=== PATIENT | female | born 1960 | race Caucasian/White ===

== ENCOUNTER 2020-09-20 14:13 | Emergency (ER) | payer OTHER ==
--- NOTE | 2020-09-20 16:23 | EDPHYS ---
Physician Documentation [facility] Name: Genesis Camejo Age: 60 yrs Sex: Female : 1960 Arrival Date: 09/20/2020 Time: 14:14 Bed 16 Private MD: Davy Bazan HPI: 09/20 16:10 This 60 yrs old Female presents to ER via Ambulatory with complaints of sent veda by [facility]. 16:10 The patient has shortness of breath with light activity. Onset: The symptoms/episode veda began/occurred 3 day(s) ago. Duration: The symptoms are continuous, and are steadily getting worse. The patient's shortness of breath has no apparent modifying factors. The patient complains of pain to the top of head, forehead, left frontal area, left side of the back of head, left occipital area and left base of the skull. The patient describes the headache as constant. Onset: The symptoms/episode began/occurred 2 week(s) ago. Associated signs and symptoms: Pertinent positives: dizziness, malaise, nausea, weakness. Severity of symptoms: At its worst the pain was mild, in the emergency department the pain is unchanged. Headache History: The patient has had previous headaches and this one is different than previous episodes, and this one is more severe than previous episodes. Associated signs and symptoms: Pertinent positives: non-productive cough, nausea. Historical: - Allergies: 14:55 PENICILLINS; tw2 14:55 Codeine; tw2 - Home Meds: 14:55 None [Active]; tw2 - PMHx: 14:55 Lung Cancer; Brain Cancer; tw2 - PSHx: 14:55 ; tw2 - Immunization history:: Adult Immunizations. - Social history:: Smoking status: Patient reports the use of cigarette tobacco products, smokes one pack cigarettes per day. 40+ years. - Family history:: not pertinent. ROS: 16:10 Constitutional: Negative for fever, chills, and weight loss, Eyes: Negative for injury, veda pain, redness, and discharge, ENT: Negative for injury, pain, and discharge, Neck: Negative for injury, pain, and swelling, Cardiovascular: Negative for chest pain, palpitations, and edema, Respiratory: Negative for shortness of breath, cough, wheezing, and pleuritic chest pain, Abdomen/GI: Negative for abdominal pain, nausea, vomiting, diarrhea, and constipation, Back: Negative for injury and pain, : Negative for injury, bleeding, discharge, and swelling, MS/Extremity: Negative for injury and deformity, Skin: Negative for injury, rash, and discoloration, Psych: Negative for depression, anxiety, suicide ideation, homicidal ideation, and hallucinations, Allergy/Immunology: Negative for hives, rash, and allergies, Endocrine: Negative for neck swelling, polydipsia, polyuria, polyphagia, and marked weight changes, Hematologic/Lymphatic: Negative for swollen nodes, abnormal bleeding, and unusual bruising. 16:10 Neuro: Positive for dizziness, headache. Exam: 16:10 Constitutional: This is a well developed, well nourished patient who is awake, alert, veda and in no acute distress. Head/Face: Normocephalic, atraumatic. Eyes: Pupils equal round and reactive to light, extra-ocular motions intact. Lids and lashes normal. Conjunctiva and sclera are non-icteric and not injected. Cornea within normal limits. Periorbital areas with no swelling, redness, or edema. ENT: Nares patent. No nasal discharge, no septal abnormalities noted. Tympanic membranes are normal and external auditory canals are clear. Oropharynx with no redness, swelling, or masses, exudates, or evidence of obstruction, uvula midline. Mucous membranes moist. Neck: Trachea midline, no thyromegaly or masses palpated, and no cervical lymphadenopathy. Supple, full range of motion without nuchal rigidity, or vertebral point tenderness. No Meningismus. Chest/axilla: Normal chest wall appearance and motion. Nontender with no deformity. No lesions are appreciated. Cardiovascular: Regular rate and rhythm with a normal S1 and S2. No gallops, murmurs, or rubs. Normal PMI, no JVD. No pulse deficits. Abdomen/GI: Soft, non-tender, with normal bowel sounds. No distension or tympany. No guarding or rebound. No evidence of tenderness throughout. Back: No spinal tenderness. No costovertebral tenderness. Full range of motion. Female : Normal external genitalia. Skin: Warm, dry with normal turgor. Normal color with no rashes, no lesions, and no evidence of cellulitis. MS/ Extremity: Pulses equal, no cyanosis. Neurovascular intact. Full, normal range of motion. Neuro: Awake and alert, GCS 15, oriented to person, place, time, and situation. Cranial nerves II-XII grossly intact. Motor strength 5/5 in all extremities. Sensory grossly intact. Cerebellar exam normal. Normal gait. Psych: Awake, alert, with orientation to person, place and time. Behavior, mood, and affect are within normal limits. 16:10 Respiratory: the patient does not display signs of respiratory distress, Respirations: normal, Breath sounds: bronchial sounds, decreased breath sounds, that are mild, are heard in the right upper lobe, left upper lobe, right middle lobe, left lower lobe, right lower lobe, left posterior upper lobe, right posterior upper lobe, left posterior lower lobe, right posterior middle lobe and right posterior lower lobe, rhonchi, that are mild, stridor, is not appreciated, wheezing: expiratory Vital Signs: 14:51 BP 172 / 66; Pulse 110; Resp 17; Temp 98.3(TE); Pulse Ox 96% on R/A; Weight 56.25 kg tw2 (R); Height 5 ft. 4 in. (162.56 cm); Pain 0/10; 20:00 BP 135 / 67; Pulse 81; Resp 16; Pulse Ox 97% on R/A; jm8 22:33 BP 113 / 74; Pulse 78; Resp 16; Pulse Ox 96% on R/A; jm8 14:51 Body Mass Index 21.28 (56.25 kg, 162.56 cm) tw2 Mary Coma Score: 16:15 Eye Response: spontaneous(4). Verbal Response: oriented(5). Motor Response: obeys veda commands(6). Total: 15. MDM: 16:15 Antibiotic administration: Not indicated. Differential diagnosis: Bronchitis Chronic veda Obstructive Pulmonary Disease epidural hematoma, hypoglycemia, neoplasm, subarachnoid bleed, tension headache. The patient's Wells Deep Vein Thrombosis Score was calculated as follows: Heart Rate >100 BPM (1.5 Pts) Total Score: 0-2 Pts- Low Risk. The patient's pulmonary embolism risk score was calculated as follows: the patients heart rate is greater than 100 beats per minute (1.5 Pts) Total Score: 0-2 points. This patient was found to be at low risk for a pulmonary embolism by using the Well's assessment criteria. Immunization status: Influenza vaccine:. Data reviewed: vital signs, nurses notes, lab test result(s), EKG, radiologic studies, CT scan, plain films. 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 Test interpretation: by ED physician or midlevel provider: ECG, plain radiologic studies. Counseling: I had a detailed discussion with the patient and/or guardian regarding: the historical points, exam findings, and any diagnostic results supporting the discharge/admit diagnosis, lab results, radiology results, the need to transfer to another facility, for higher level of care, [facility] does not immediately have the required specialist. 16:21 Patient medically screened. [facility] 09/20 16:07 Order name: Basic Metabolic Panel [facility] 09/20 16:07 Order name: CBC with Diff [facility] 09/20 16:07 Order name: LFT's; Complete Time: 19:31 [facility] 09/20 16:07 Order name: Magnesium; Complete Time: 19:31 [facility] 09/20 16:07 Order name: NT PRO-BNP; Complete Time: 19:31 [facility] 09/20 16:07 Order name: PT-INR [facility] 09/20 16:07 Order name: Troponin (emerg Dept Use Only); Complete Time: 19:31 [facility] 09/20 16:07 Order name: XRAY Chest (1 view); Complete Time: 18:37 [facility] 09/20 16:07 Order name: Basic Metabolic Panel; Complete Time: 19:31 [facility] 09/20 16:07 Order name: CBC with Automated Diff [facility] 09/20 19:21 Order name: SARS-COV-2 RT PCR; Complete Time: 19:31 [facility] 09/20 16:07 Order name: EKG; Complete Time: 16:08 veda 09/20 16:07 Order name: Cardiac monitoring; Complete Time: 20:25 veda 09/20 16:07 Order name: EKG - Nurse/Tech; Complete Time: 20:25 veda 09/20 16:07 Order name: IV Saline Lock; Complete Time: 19:25 veda 09/20 16:07 Order name: Labs collected and sent; Complete Time: 18:34 veda 09/20 16:07 Order name: O2 Per Protocol; Complete Time: 18:34 [facility] 09/20 16:07 Order name: O2 Sat Monitoring; Complete Time: 18:34 veda 09/20 16:07 Order name: Seizure Precautions; Complete Time: 18:33 [facility] Administered Medications: Discontinued: Keppra (levETIRAcetam) 1000 mg IV at per protocol once Discontinued: NS 0.9% 1000 ml IV at 125 ml/hr continuous 18:58 Drug: Keppra (levETIRAcetam) 1000 mg Route: IV; Rate: per protocol; Site: left forearm; em 22:47 Follow up: Response: No adverse reaction 8 19:00 Drug: Decadron - Dexamethasone 10 mg Route: IVP; Site: left forearm; em 22:46 Follow up: Response: No adverse reaction jm8 19:02 Drug: NS 0.9% 1000 ml Route: IV; Rate: 125 ml/hr; Site: left forearm; em Disposition: 09/20/20 16:21 Transfer ordered to [facility]. Diagnosis are Malignant neoplasm of bronchus and lung, Cerebral edema - two metastatic lesions with significant vasogenic edema. - Reason for transfer: Higher level of care. - Accepting physician is to [facility]. - Condition is Serious. - Problem is new. - Symptoms have improved. Signatures: Dispatcher [employer] [facility] Davy Gardner MD MD cha Munoz, Edgar, RN RN Tosin Benavidez RN RN tw2 Kumar Prasad RN RN jm8 Corrections: (The following items were deleted from the chart) 18:42 16:09 CORONAVIRUS+MR.LAB.BRZ ordered. [facility] 22:45 16:21 09/20/2020 16:21 Transfer ordered to [facility]. Diagnosis is jm8 Malignant neoplasm of bronchus and lung; Cerebral edema - two metastatic lesions with significant vasogenic edema. Reason for transfer: Higher level of care. Accepting physician is to [facility]. Condition is Serious. Problem is new. Symptoms have improved. veda
--- NOTE | 2020-09-20 16:23 | ER ---
Nurse's Notes [facility] Name: Genesis Camejo Age: 60 yrs Sex: Female : 1960 Arrival Date: 09/20/2020 Time: 14:14 Bed 16 Private MD: Diagnosis: Malignant neoplasm of bronchus and lung;Cerebral edema-two metastatic lesions with significant vasogenic edema Presentation: 09/20 14:51 Chief complaint: Patient states: I was just diagnosed with lung CANCER today and brain tw2 Cancer. i have been short of breath for about a month. i get these horrific headaches that are brutal. I get this intense pressure behind my eyes. and i am just exhausted. Coronavirus screen: headache, shortness of breath, sore throat. Coronavirus screen: Client presents with at least one sign or symptom that may indicate coronavirus-19. Standard/surgical mask placed on the client. Provider contacted for isolation considerations. Ebola Screen: Patient denies travel to an Ebola-affected area in the 21 days before illness onset. Initial Sepsis Screen: Does the patient meet any 2 criteria? No. Patient's initial sepsis screen is negative. Does the patient have a suspected source of infection? No. Patient's initial sepsis screen is negative. Risk Assessment: Do you want to hurt yourself or someone else? Patient reports no desire to harm self or others. Onset of symptoms was September 20, 2020. 14:51 Method Of Arrival: Ambulatory tw2 14:51 Acuity: NASH 2 ss Triage Assessment: 14:55 General: Appears in no apparent distress. slender, Behavior is calm, cooperative, tw2 appropriate for age. Pain: Denies pain. Historical: - Allergies: 14:55 PENICILLINS; tw2 14:55 Codeine; tw2 - Home Meds: 14:55 None [Active]; tw2 - PMHx: 14:55 Lung Cancer; Brain Cancer; tw2 - PSHx: 14:55 ; tw2 - Immunization history:: Adult Immunizations. - Social history:: Smoking status: Patient reports the use of cigarette tobacco products, smokes one pack cigarettes per day. 40+ years. - Family history:: not pertinent. Screenin:45 Abuse screen: Denies threats or abuse. Nutritional screening: No deficits noted. em Tuberculosis screening: No symptoms or risk factors identified. Fall Risk None identified. Assessment: 18:45 General: Appears in no apparent distress. comfortable, Behavior is calm, cooperative, em appropriate for age. Pain: Denies pain. Neuro: Level of Consciousness is awake, alert, obeys commands, Oriented to person, place, time, situation, Reports headache since 2 months. Cardiovascular: Capillary refill < 3 seconds Patient's skin is warm and dry. Respiratory: Airway is patent Respiratory effort is even, unlabored, Respiratory pattern is regular, symmetrical. GI: Abdomen is flat, Reports nausea. Derm: Skin is intact, is thin, Skin is pink, warm \T\ dry. Musculoskeletal: Capillary refill < 3 seconds, Range of motion: intact in all extremities. 20:00 Reassessment: Patient appears in no apparent distress at this time. Patient and/or [facility] family updated on plan of care and expected duration. Pain level reassessed. Patient is alert, oriented x 3, equal unlabored respirations, skin warm/dry/pink. 22:00 Reassessment: Patient appears in no apparent distress at this time. No changes from [facility] previously documented assessment. Patient and/or family updated on plan of care and expected duration. Pain level reassessed. Patient is alert, oriented x 3, equal unlabored respirations, skin warm/dry/pink. 09/21 00:07 Reassessment: report given to Davida Nicholson [facility] Vital Signs: 09/20 14:51 BP 172 / 66; Pulse 110; Resp 17; Temp 98.3(TE); Pulse Ox 96% on R/A; Weight 56.25 kg tw2 (R); Height 5 ft. 4 in. (162.56 cm); Pain 0/10; 20:00 BP 135 / 67; Pulse 81; Resp 16; Pulse Ox 97% on R/A; 8 22:33 BP 113 / 74; Pulse 78; Resp 16; Pulse Ox 96% on R/A; [facility] 14:51 Body Mass Index 21.28 (56.25 kg, 162.56 cm) tw2 Clanton Coma Score: 16:15 Eye Response: spontaneous(4). Verbal Response: oriented(5). Motor Response: obeys veda commands(6). Total: 15. ED Course: 14:14 Patient arrived in ED. as 14:54 Triage completed. tw2 14:55 Arm band placed on. tw2 16:04 Davy Gardner MD is Attending Physician. veda 16:27 initiated transfer to [facility]. bd 16:38 pt was denied at [facility] due to no beds. bd 16:38 initiated transfer to [facility]. bd 16:41 transfer initiated to [facility] by dr gradner,pt by Alcira Moreno due to no beds bd at this time. 16:48 XRAY Chest (1 view) In Process Unspecified. EDMS 17:48 pt denied at [facility] due to physicians not comfortable taking the pt outside [facility]. per caitie. 18:02 pt denied at all [facility] due to no capacity, per kristina. bd 18:05 initiated transfer to [facility]. bd 18:29 Jeromy Youssef, RN is Primary Nurse. em 18:45 Patient has correct armband on for positive identification. em 18:50 Initial lab(s) drawn, by fl, sent to lab. Inserted saline lock: 20 gauge in left em forearm, using aseptic technique. Blood collected. 22:43 No provider procedures requiring assistance completed. Patient transferred, IV remains [address] Administered Medications: Discontinued: Keppra (levETIRAcetam) 1000 mg IV at per protocol once Discontinued: NS 0.9% 1000 ml IV at 125 ml/hr continuous 18:58 Drug: Keppra (levETIRAcetam) 1000 mg Route: IV; Rate: per protocol; Site: left forearm; em 22:47 Follow up: Response: No adverse reaction [facility] 19:00 Drug: Decadron - Dexamethasone 10 mg Route: IVP; Site: left forearm; em 22:46 Follow up: Response: No adverse reaction [facility] 19:02 Drug: NS 0.9% 1000 ml Route: IV; Rate: 125 ml/hr; Site: left forearm; em Outcome: 16:21 ER care complete, transfer ordered by . [facility] 22:43 Transferred by ground EMS to [facility], Transfer form completed. [facility] 22:43 Condition: good 22:43 Instructed on the need for admit, the need for transfer. 22:45 [address] the ED[address] [facility] Signatures: Dispatcher [employer] [facility]NC Di Bergeron Corey, MD MD cha Munoz, Edgar, RN RN Zunilda Gee Shelby, RN RN ss Tosin Benavidez RN RN tw2 Kumar Prasad RN RN jm8 Corrections: (The following items were deleted from the chart) 15:02 14:51 Acuity: NASH 3 tw2 ss
--- NOTE | 2020-09-20 17:51 | RAD REPORT ---
EXAM DESCRIPTION: Swati Single View09/20/2020 4:49 pm CLINICAL HISTORY: Cough COMPARISON: September 16 2020 chest x-ray FINDINGS: Right upper lobe mass without change. Remaining lungs appear clear of acute infiltrate. The heart is normal size
[2020-09-20] MEDS ORDERED: dexAMETHasone 10 MG/ML VIAL ONE (18:57)
[2020-09-20] MEDS ORDERED: NA CHLORIDE 0.9% 1,000 ML ONE (18:57)
[2020-09-20] MEDS ORDERED: levETIRAcetam 1,000 MG in NA CHLORIDE 0.9% 100 ML IV SCH (19:00)
[2020-09-20 19:23] LABS: Protime INR 1.09
[2020-09-20 19:24] LABS: Absolute Lymphocytes (CBC) 2.7 K/uL (0.7-4.9); Basophils % 0.6 % (0-1.3); Hematocrit 42.3 % (36.0-45.0); Lymphocytes % 24.6 % (15.3-44.8); MPV 8.2 fL (7.6-11.3); RBC Red Blood Cell Count 4.67 M/uL (3.86-4.86)
[2020-09-20 19:30] LABS: ALT/SGPT 20 U/L (12-78); AST/SGOT 16 U/L (15-37); Albumin 3.3 g/dL (3.4-5.0); Alkaline Phosphatase 113 U/L (45-117); BUN Blood Urea Nitrogen 8 mg/dL (7-18); Bicarbonate 29 mmol/L (21-32); Bilirubin Direct < 0.1 mg/dL (0-0.2); Bilirubin Total 0.2 mg/dL (0.2-1.0); Glucose Level 108 mg/dL (74-106); Magnesium 2.2 mg/dL (1.8-2.4); NT PRO-BNP 200 pg/mL (<125); Protein, Total 8.7 g/dL (6.4-8.2); Sodium Level 138 mmol/L (136-145); Troponin (Emerg Dept Use Only) < 0.02 ng/mL (0.0-0.045)
[2020-09-20 23:11] VITALS: TEMP 98.3
[2020-09-20 23:14] VITALS: BP 113/74; O2SAT 96
--- NOTE | 2020-09-22 07:22 | EKG ---
Test Date: 2020-09-20 Test Time: 20:22:13 Plant Technical Specialist: GONZALES MEASUREMENT RESULTS: Intervals: Rate: 79 TN: 156 QRSD: 84 QT: 384 QTc: 440 [place]: P: 77 TN: 156 QRS: 89 T: 69 INTERPRETIVE STATEMENTS: Normal sinus rhythm Biatrial enlargement Abnormal ECG No previous ECG available for comparison Electronically Signed On 09-22-20 07:18:27 CDT by Micha Santos
== END 2020-09-20 22:45 | disposition short-term general hospital (02) ==
LOC: ER 14:13
DX: C79.31 Secondary malignant neoplasm of brain (principal); C34.90 Malignant neoplasm of unspecified part of unspecified bronchus or lung; G93.6 Cerebral edema; F17.210 Nicotine dependence, cigarettes, uncomplicated; Z20.822 Contact with and (suspected) exposure to COVID-19; Z88.0 Allergy status to penicillin; Z88.5 Allergy status to narcotic agent
CPT/HCPCS: 85025; 80048; 36415; 83735; 85610; 80076; 84484; 83880; 71045; U0003; J1100; J1953; J7030; 93005; 96374; 96375; 99285

== ENCOUNTER 2020-12-22 11:51 | Emergency (ER) | payer OTHER ==
--- OUTSIDE RECORDS SUMMARY | 2020-12-22 11:55 | XMS REPORT | Continuity of Care Document ---
:1960 Author Organization [facility] t Address [facility] Charlie Mcinty[address] [place] [address] Care Team Providers Name Role Phone Asked, Pcp Primary Care Physician Unavailable Johnathon METZGER Attending Clinician Jamaal Lew [facility] Attending Clinician Unavailable Piyush Linton MD Attending Clinician Quang Jamison MD Attending Clinician Becca Abrams MD Attending Clinician MD PIYUSH LINTON Attending Clinician Unavailable SHAILA Admitting Clinician Unavailable MD PIYUSH LINTON Admitting Clinician Unavailable Payers Payer Name Policy Type Policy Effective Date Expiration Date Sour Number AETNAAETNA PPO [id number] 2020 [facility] OPEN 00:00:00 Hospital [id number] 2020-Present PPO Problems Condition Condition Condition Status Onset Resolution Last Treating Co mments Source Name Details Category Date Date Treatment Clinician Date 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 00:00: Hospita 00 l Brain Brain Disease Active Methodi lesion lesion 09-21 00:00: Hospita 00 l Allergies, Adverse Reactions, Alerts Allergy Allergy Status Severity Reaction(s) Onset Inactive Treating Comm ents Source Name Type Date Date Clinician Codeine Propensi Active GI Methodi ty to Intolerance 09-21 st adverse 00:00: Hospita reaction 00 l s to drug Penicill Propensi Active Shortness Of Methodi ins ty to Breath 09-21 st adverse 00:00: Hospita reaction 00 l s to drug Social History Social Habit Start Date Stop Date Quantity Comments Source History of tobacco 1979-09-22 Current every Met hodist use 00:00:00 day smoker Hospital Cigarettes smoked 2020-09-21 2020-09-[address] current (pack per 00:00:00 00:00:00 Hospita l day) - Reported Cigarette 2020-09-21 2020-09-21 [facility] pack-years 00:00:00 00:00:00 Hospital Tobacco use and 2020-09-21 2020-09-[address] exposure 00:00:00 00:00:00 Hospital Alcohol intake 2020-09-21 2020-09-21 Current drinker Metho dist 00:00:00 00:00:00 of alcohol Hospital (finding) Sex Assigned At [birth year] [facility] 00:00:00 00:00:00 Hospital Smoking Status Start Date Stop Date Source Current every day smoker 2020-09-21 00:00:00 [facility] Medications Ordered Filled Start Stop Current Ordering Indication Dosage Frequency Signature Comments Components Source Medication Medication Date Date Medication? Clinician (SIG) Name Name multivit,ca 2020- 1{tbl} QD Take 1 M ethodi lc,mins/iro 5-12 05-[address] n/folic 00:00: 00:00 mouth Hospita (multivitam 00 :00 daily for l in,tx-iron- 30 days. minerals) 27-0.4 mg tablet tablet b complex Yes 1{capsu QD Take 1 Met hodi vitamins 5-11 le} capsule by st capsule 20:02: mouth Hospita 44 daily. l amLODIPine Yes Take 1 Metho di (NORVASC) 5 5-[address] mg tablet 00:00: mouth Hospita 00 daily for l 30 days fluticasone Yes Inhale 1 Me thodi furoate-jv 5-[address] anteroL 00:00: daily for Hospi ta (Breo 00 30 days l Ellipta) 200-25 mcg/dose blister with device powder for inhalation levETIRAcet Yes Take 1 Meth messi am (Keppra) 09-[address] 500 MG 00:00: mouth Hospita tablet 00 twice l daily for 30 days multivit,ca Yes Take 1 Meth messi lc,mins/iro - tablet by st n/folic 00:00: mouth Hospita (multivitam 00 daily for l in,tx-iron- 30 days minerals) 27-0.4 mg tablet tablet ondansetron Yes Take 8 mg M ethodi (Zofran) 4 09-27 (2 st MG tablet 00:00: tablets) Hosp philomena 00 by mouth l every 8 hours as needed for nausea/vom iting prochlorper Yes Take 1 Meth messi azine - tablet by st (COMPAZINE) 00:00: mouth Hospi ta 5 MG tablet 00 every 6 l hours as needed for nausea/vom iting dexamethaso 2020- No Taper dose Methodi ne 09-[address] (DECADRON) 00:00: 04:59 2 tablets H ospita 2 MG tablet 00 :00 (4 mg) l daily for 7 days, then take 1 tablet (2 mg) daily for 7 days amLODIPine 2020- No 5mg QD Take 1 Meth messi (NORVASC) 5 09-27 tablet (5 st mg tablet 00:00: 00:00 mg total) Ho spita 00 :00 by mouth l daily for 30 days. dexamethaso 2020- No 2mg Q.5D Take 1 Met hodi ne 09-27 tablet (2 st (DECADRON) 00:00: 00:00 mg total) H ospita 2 MG tablet 00 :00 by mouth 2 l (two) times a day with meals for 30 days. levETIRAcet 2020- No 500mg Q.5D Take 1 Me thodi am (Keppra) 09-[address] 500 MG 00:00: 00:00 (500 mg Hospita tablet 00 :00 total) by l mouth 2 (two) times a day for 30 days. fluticasone 2020- No QD Inhale 1 M ethodi furoate-jv 09-27 inhalation s t anteroL 00:00: 00:00 s daily Hospit a (Breo 00 :00 for 30 l Ellipta) days. 200-25 mcg/dose blister with device powder for inhalation Vital Signs Vital Name Observation Time Observation Value Comments Source Heart rate 2020-09-27 16:50:29 63 /min [facility] Body temperature 2020-09-27 16:50:29 36.83 [facility] Respiratory rate 2020-09-27 16:50:29 20 /min [facility] Oxygen saturation in 2020-09-27 16:50:29 97 /min [facility] Arterial blood by Pulse oximetry Systolic blood 2020-09-27 16:50:29 180 mm[Hg] [facility] pressure Diastolic blood 2020-09-27 16:50:29 72 mm[Hg] [facility] pressure Body height 2020-09-24 04:28:00 162.6 cm [facility] Body weight 2020-09-24 04:28:00 56.518 kg [facility] BMI 2020-09-24 04:28:00 21.39 kg/m2 [facility] Procedures Procedure Date / Time Performing Clinician Source Performed HC COMPLETE BLD COUNT 2020-09-27 10:36:00 Melania Dalal [facility] W/AUTO DIFF BASIC METABOLIC PANEL 2020-09-27 10:36:00 DalalAlexandrMelania [facility] ESTIMATED GFR 2020-09-27 10:36:00 Melania Dalal HC COMPLETE BLD COUNT 2020-09-26 09:10:00 [facility] W/AUTO DIFF Haresh BASIC METABOLIC PANEL 2020-09-26 09:10:00 [facility] Haresh MAGNESIUM LEVEL 2020-09-26 09:10:00 Chase Webb PHOSPHORUS LEVEL 2020-09-26 09:10:00 Chase Webb IONIZED CALCIUM 2020-09-26 09:10:00 Chase Webb ESTIMATED GFR 2020-09-26 09:10:00 Chase Webb POC GLUCOSE 2020-09-26 02:04:00 [facility] HC COMPLETE BLD COUNT 2020-09-25 10:08:00 Steveva [facility]/AUTO DIFF Axtell BASIC METABOLIC PANEL 2020-09-25 10:08[facility] 2020-09-25 10:08:00 Je Shelton [facility] HC COMPLETE BLD COUNT 2020-09-24 10:11:00 Steveva [facility]/AUTO DIFF Axtell BASIC METABOLIC PANEL 2020-09-24 10:11:[facility] ESTIM[facility] GFR 2020-09-24 10:11:[address] [facility] XR CHEST 1 2020-09-22 21:55:05 Lambert Caro [facility] XR CHEST 1 2020-09-22 20:29:00 [facility] 2020-09-22 20:10:00 [facility] REQUEST CT NEEDLE BIOPSY NO 2020-09-22 19:12:00 [facility] CONTRAST CYTOLOGY 2020-09-22 18:41:00 [facility] (NON-GYNECOLOGICAL) REQUEST HEMOGLOBIN A1C 2020-09-22 09:37:00 [facility] THYROID STIMULATING 2020-09-22 09:37:00 [facility] HORMONE T4, FREE 2020-09-22 09:37:00 [facility] VITAMIN B12 LEVEL 2020-09-22 09:37:00 [facility] FOLATE LEVEL 2020-09-22 09:37:00 [facility] VITAMIN B1 LEVEL, WHOLE 2020-09-22 09:37:00 [facility] BLOOD VITAMIN D 1,25 DIHYDROXY 2020-09-22 09:37:00 [facility] LEVEL, SERUM COVID-19 QUALITATIVE 2020-09-21 21:36:00 Yesenia CrowShailesh [facility] RT-PCR CT CHEST W CONTRAST 2020-09-21 17:04:35 [facility] ABDOMEN W WO CONTRAST PELVIS W CONTRAST CT HEAD WO CONTRAST 2020-09-21 17:03:09 [facility] MRI BRAIN W WO CONTRAST 2020-09-21 13:15:00 [facility] XR CHEST 1 VW PORTABLE 2020-09-21 11:35:00 [facility] ECG 12-LEAD 2020-09-21 08:38:21 [facility] spital PLATELET FUNCTION 2020-09-21 08:00:00 [facility] ANALYSIS BASIC METABOLIC PANEL 2020-09-21 06:53:00 [facility] HC COMPLETE BLD COUNT 2020-09-21 06:53:00 [facility] W/AUTO DIFF PARTIAL THROMBOPLASTIN 2020-09-21 06:53:00 [facility] TIME (PTT) PROTHROMBIN TIME WITH INR 2020-09-21 06:53:00 [facility] C-REACTIVE PROTEIN 2020-09-21 06:53:00 [facility] SEDIMENTATION RATE 2020-09-21 06:53:00 [facility] ESTIMATED GFR 2020-09-21 06:53:00 Anthony Linton [facility] Plan of Care Planned Activity Planned Date Details Comments Source Future Scheduled Test COVID-19 VACCINE (1) [facility] [code = COVID-19 VACCINE (1)] Future Scheduled Test Hepatitis C screening [facility] (procedure) [code = 077437826] Future Scheduled Test BREAST CANCER SCREENING [facility] [code = BREAST CANCER SCREENING] Future Scheduled Test COLONOSCOPY SCREENING [facility] [code = COLONOSCOPY SCREENING] Future Scheduled Test SHINGLES VACCINES (#1) [facility] [code = SHINGLES VACCINES (#1)] Future Scheduled Test INFLUENZA VACCINE [code [facility] = INFLUENZA VACCINE] Future Scheduled Test Screening for malignant [facility] neoplasm of cervix (procedure) [code = 131111460] Encounters Start End Encounter Admission Attending Care Care Encounter Source Date/Time Date/Time Type Type Clinicians Facility Department ID 2020-10-24 2020-10-24 Refmoises LorenzoarianaDioni 1.2.840.1 [id number] Methodi 00:00:00 00:00:[id number] 3.430.2.7 Hospit a .3.217597 l .8 2020-09-28 2020-09-28 Orders Jamaal Vipin, 1.2.840.1 [id number] Methodi 00:00:00 00:00:00 Only Vanessa 97546.1.[address] 3.430.2.7 Hospit a .3.121299 l .8 2020-09-20 2020-09-27 [facility] 1.2.840[facility]1 [id number] Methodi 23:58:00 15:02:00 Encounter Cruzito Jamison 02530.1.[address] 3.430.2.7 Hospit a .3.498050 l .8 2020-09-20 2020-09-27 Inpatient LILA [facility] [id number] [place] 00:00:00 00:00:00 CRU[address] 2020-09-24 2020-09-24 Orders Aliza 1.2.840.1 [id number] Methodi 00:00:00 00:00:00 Only Yamini Hudson [address]872.1.[address] 3.430.2.7 Hospit a .3.553663 l .8 2020-09-24 2020-09-24 Orders Aliza 1.2.840.1 [id number] Methodi 00:00:00 00:00:00 Only Yamini Hudson [address]6916.1.[address] 3.430.2.7 Hospit a .3.117742 l .8 Results Test Description Test Time Test Comments Results Result Comments Source Cytology (non-gynecological) request 2020-09-23 23:52:57 Test Item Value Reference Range Interpretation Comme nts Case number (test code = [id number]) [id number] Cytology (non-gynecological) report See link below for PDF Lab Repo rt (test code = 1178) Result status (test code = 1822509) This is Final Report for [id number] [facility] [id number] 23:41:56 Test Item Value Reference Range Interpretation Comments Case number (test code = [id number]) Surgical pathology See link below for report (test code = PDF Lab Report [id number]) Result status (test code This is Final Report = [id number]) for [id number] [facility] 12 [id number] 14:25:31 Test Item Value Reference Range Interpretation Comments Ventricular rate (test code = 253) Atrial rate (test code = 255) OH interval (test code = 266) QRSD interval (test code = 260) QT interval (test code = 264) QTC interval (test code = 265) P axis 1 (test code = 267) QRS axis 1 (test code = 268) T wave axis (test code = 270) EKG impression (test Normal sinus code = 273) rhythm-Possible Anterolateral infarct , age undetermined-Abnormal ECG-No previous ECGs available-Electronicall y Signed By Nunu METZGER [facility] ([id number]) on 09/23/2020 9:25:27 AM [facility] 1 [id number] 21:59:26EXAMINATION: XR CHEST 1 VW CLINICAL HISTORY: 60 years Female post lung biopsy COMPARISON: None. IM PRESSION: Cardiomediastinal silhouette is unchanged. Lobulated right upper lobe mass, unchanged. There is no pneumothorax The osseous structures are within normal limits. . . Interface, Radiology Results Incoming - 09/22/2020 5:02 PM CDT EXAMINATION: XR CHEST 1 VWCLINICAL HISTORY: 60 years Female post lung biopsyCOMPARISON: None.IMPRESSION:Cardiomediastinal silhouette is unchanged. Lobulated right upper lobe mass, unchanged. There is no pneumothorax The osseous structures are within normal limits...[facility] No [id number] 21:04:27EXAMINATION: CT NEEDLE BIOPSY NO CONTRAST CLINICAL HISTORY: lung bx, lung cancer TECHNIQUE: The risks, benefits, and alternatives were discussed with the patient and written informed consent was obtained.A site for needle entry was selected and the skin was prepped and draped in the usual sterile fashion. After local administration of 1% buffered lidocaine, a tiny dermatotomy was made. Using CT guidance, multiple 20-gauge core samples were obtained of the dominant right upper lobe mass by posterior approach, using coaxial technique trhough 19G introducer. The specimens were reviewed with pathology and were deemed likely adequate but extensively necrotic. Two additional core specimens were acquired and submitted. The patient was discharged to the radiology recovery area for monitoring prior to discharge. CT scanning was performed using radiation dose reduction techniques. Conscious sedation: A combination of intravenous Versed and fentanyl was given. The patient was monitored throughout the procedure and in the postprocedure recovery area. Bsrq-pm-wnma sedation time was 30 minutes. EBL: Minimal. Complications: None. Assistants: None. IMPRESSION: CT guided right lung mass biopsy. [id number] Interface, Radiology Results Incoming - 09/22/2020 4:07 PM CDT EXAMINATION: CT NEEDLE BIOPSY NO CONTRASTCLINICAL HISTORY: lung bx, lungcancerTECHNIQUE:The risks, benefits, and alternatives were discussed with the patient and written informed consent was obtained.A site for needle entry was selected and the skin was prepped and draped in the usual sterile fashion. After local administration of 1% buffered lidocaine, a tiny dermatotomywas made. Using CT guidance, multiple 20-gauge core samples were obtained of the dominant right upper lobe mass by posterior approach, using coaxial technique trhough 19G introducer. The specimens werereviewed with pathology and were deemed likely adequate but extensively necrotic. Two additional core specimens were acquired and submitted.The patient was discharged to the radiology recovery area formonitoring prior to discharge.CT scanning was performed using radiation dose reduction techniques.Conscious sedation: A combination of intravenous Versed and fentanyl was given. The patient was monitored throughout the procedure and in the postprocedure recovery area. 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 Brain mass. TECHNIQUE: Axial images of the abdomen were obtained prior to intravenous contrast administration. Multiple axial images of the chest, abdomen, and pelvis were obtained following intrav enous administration of iodinated contrast. Sagittal and coronal computerized reformatted images were obtained. CT imaging was performed with iterative reconstruction techniques and/or automated exposure control to reduce radiation dose. COMPARISON: None. FINDINGS: CHEST:5.2 cm mass posteriorly in the right upper lobe focally abutting the major fissure. A 3 mm noncalcified nodule at the left apex isindeterminate. No acute airspace disease. Diffuse moderate centrilobular pulmonary emphysema. No pleural or pericardial effusion. No lymphadenopathy. The heart is normal in size. No aortic aneurysm. ABDOMEN AND PELVIS:Liver is normal in size. A punctate hypodense subcapsular focus in segment 7 (series6 image 93) is too small to characterize but statistically likely cyst. Nondistended gallbladder. Normal pancreas and spleen. No renal or adrenal mass. No hydronephrosis. No lymphadenopathy. No bowel thickening or dilatation. No free fluid. 1.7 cm left adnexal cyst. Mildly calcified aorta is normal incaliber. No suspicious bony lesion. IMPRESSION: 5.2 cm right upper lobe pulmonary mass suspicious for malignancy. No definite evidence of metastatic disease in the chest, abdomen, and pelvis. Attention on follow-up for a nonspecific punctate pulmonary nodule in the left apex. Pulmonary emphysema. [id number] Interface, Radiology Results 09/21/2020 1:27 PM CDT EXAMINATION: CT CHEST W CONTRAST ABDOMEN W WO CONTRAST PELVIS WCONTRASTCLINICAL HISTORY: met workup. Brain mass.TECHNIQUE: Axial images of the abdomen were obtained prior to intravenous contrast administration. Multiple axial images of the chest, abdomen, and pelvis were obtained following intravenous administration of iodinated contrast. Sagittal and coronal computerized reformatted images were obtained.CT imaging was performed with iterative reconstruction techniques and/or automated exposure control to reduce radiation dose.COMPARISON: None.FINDINGS:CHEST:5.2 cm mass posteriorly in the right upper lobe focally abutting the major fissure. A 3 mm noncalcified nodule at the left apex is indeterminate.No acute airspace disease. Diffuse moderate centrilobular pulmonary emphysema.No pleural or pericardial effusion.No lymphadenopathy.The heart is normal in size. No aortic aneurysm.ABDOMEN AND PELVIS:Liver is normal in size. A punctate hypodense subcapsular focus in segment 7 (series 6 image 93) is too small to characterize but statistically likely cyst. Nondistended gallbladder. Normal pancreas and spleen.No renal or adrenal mass. No hydronephrosis.No lymphadenopathy.No bowel thickening or dilatation. No free fluid.1.7 cm left adnexal cyst.Mildly calcified aorta is normal in caliber.No suspicious bony lesion.IMPRESSION:5.2 cm right upper lobe pulmonary mass suspicious for malignancy.No definite evidence of metastatic disease in the chest, abdomen, and pelvis.Attention on follow-up for a nonspecific punctate pulmonary nodule in the left apex.Pulmonary emphysema.[id number] [id number] 17:08:29EXAMINATION: CT HEAD WO CONTRAST CLINICAL HISTORY: brain lesion COMPARISON: MRI brain dated 09/21/2020. TECHNIQUE: Noncontrast CT of the brain was performed from the skull base to the vertex. Both soft tissue and bone reconstruction algorithms are interpreted. CT imaging was performed with iterative reconstruction techniques and/or automated exposure control to reduce radiation dose. FINDINGS: Again noted are the 2 largest brain metastases located in the left paramedian parietal lobe and right posterior inferior temporal lobe. The metastases are mildly hyperdense. No jessica hemorrhage is noted. Prominent surrounding vasogenic edema is again seen on CT. Local mass effect is again seen. IMPRESSION: 2 large brain metastases are again noted with associated prominent vasogenic edema and local mass effect. No jessica hemorrhage is identified. [id number] Interface, Radiology Results 09/21/2020 12:11 PM CDT EXAMINATION: CT HEAD WO CONTRASTCLINICAL HISTORY: brain lesionCOMPARISON: MRI brain dated 09/21/2020.TECHNIQUE: Noncontrast CT of the brain was performed from the skull base to the vertex. Both soft tissue and bone reconstruction algorithms are interpreted.CT imaging was performed with iterative reconstruction techniques and/or automated exposure control to reduce radiation dose.FINDINGS:Again noted are the 2 largest brain metastases located in the left paramedian parietal lobe and right posterior inferior temporal lobe. The metastases are mildly hyperdense. No jessica hemorrhage is noted. Prominent surrounding vasogenicedema is again seen on CT. Local mass effect is again seen.IMPRESSION:2 large brain metastases are again noted with associated prominent vasogenic edema and local mass effect. No jessica hemorrhage is demetria ntified.[id number] Regional Medical Center Brain W Wo [id number] 14:25:48EXAMINATION: MRI BRAIN W WO CONTRAST CLINICAL HISTORY: brain lesion COMPARISON: None. TECHNIQUE: Brain MRI without and with intravenous gadolinium contrast, brain tumor protocol. FINDINGS: There aretwo large brain metastases, largest 3.5 cm metastasis with marked surrounding vasogenic edema centered in left paramedian parietal lobe and smaller lobulated 2.8 cm metastasis with moderate surroundingvasogenic edema centered in right posterior inferolateral temporal lobe. These metastases demonstrate areas of reduced diffusion mostly peripherally suggesting hypercellularity, more heterogeneous enhancement centrally suggesting central necrosis, and reticulated/patchy areas of susceptibility effect from blood products. Mass effect results in effacement of bilateral posterior lateral ventricles without midline shift or brain herniation. No evidence of ventricular entrapment or hydrocephalus. No extra- axial fluid collection. Giant Virchow-Randolph perivascular space is incidentally noted in right posterior inferior basal ganglia. No evidence of acute infarction. Scattered mild bilateral mastoid effusions. Trace paranasal sinus mucosal thickening. Diffuse relatively decreased fatty marrow signal without definitive focal lesion to suggest osseous metastasis. Orbits and peripheral soft tissues are unremarkable. IMPRESSION: Two large brain metastases, 3.5 cm with marked surrounding vasogenic edema in left paramedian parietal lobe and 2.8 cm with moderate surrounding vasogenic edema in right posteriorinferolateral temporal lobe. [facility]-[id number] Interface, Radiology Results 09/21/2020 9:28 AM CDT EXAMINATION: MRI BRAIN W WO CONTRASTCLINICAL HISTORY: brain lesionCOMPARISON: None.TECHNIQUE: Brain MRI without and with intravenous gadolinium contrast, brain tumor protocol.FINDINGS:There are two large brain metastases, largest 3.5 cm metastasis with marked surrounding vasogenic edema centered in left paramedian parietal lobe and smaller lobulated 2.8 cm metastasis with moderate surrounding vasogenic edema centered in right posterior inferolateral temporal lobe. These metastases demonstrate areas of reduced diffusion mostly peripherally suggesting hypercellularity, more heterogeneous enhancement centrally suggesting central necrosis, and reticulated/patchy areas of susceptibility effect from blood products.Mass effect results in effacement of bilateral posterior lateral ventricles without midline shift or brain herniation.No evidence of ventricular entrapment or hydrocephalus. No extra- axial fluid collection.[facility]iant Virchow-Randolph perivascular space is incidentally noted in right posterior inferior basal ganglia.No evidence of acute infarction.Scattered mild bilateral mastoid effusions. Trace paranasal sinus mucosal thickening. Diffuse relatively decreased fatty marrow signal without definitive focal lesion to suggest osseous metastasis. Orbits and peripheral soft tissues are unremarkable.IMPRESSION:Two large brain metastases, 3.5 cm with marked surrounding vasogenic edema in left paramedian parietal lobe and 2.8 cm with moderate surrounding vasogenic edema in right posterior inferolateral temporal lobe.[facility]-[id number] HospitalXR Chest 1 Vw [id number] 12:39:20EXAMINATION: XR CHEST 1 VW PORTABLE CLINICAL HISTORY: Presurgical respiratory evaluation, known lungmass COMPARISON: None FINDINGS: There is a 5.1 x 3.1 cm right upper lobe lung mass. No other focal lung lesion is seen. There is hyperexpansion, consistent with at least mild COPD. There is no pneumonia and no effusion. Heart size appears normal or borderline. There is no acute failure. There is no bony finding on this one view. IMPRESSION: 1. Right upper lobe mass lesion 2. No acute finding [facility]-[id number] Interface, Radiology Results Incoming - 09/21/2020 7:42 AM CDT EXAMINATION: XR CHEST 1 VW PORTABLECLINICAL HISTORY: Presurgical respiratory evaluation, known lung massCOMPARISON: NoneFINDINGS: There is a 5.1 x 3.1 cm right upper lobe lung mass.No other focal lung lesion is seen. There is hyperexpansion, consistent with at least mild COPD. There is no pneumonia and no effusion.Heart size appears normal or borderline. There is no a cute failure.There is no bony finding on this one view.IMPRESSION: 1. Right upper lobe mass lesion2.No acute findingNORTH ALAB[id number] Herm[facility]
[2020-12-22 15:42] LABS: Urine Blood Negative (Negative); Urine Glucose Negative (Negative); Urine Protein Negative (Negative)
[2020-12-22 15:53] LABS: Basophils % 0.2 % (0-1.3); Lymphocytes % 13.4 % (15.3-44.8); MPV 6.9 fL (7.6-11.3)
[2020-12-22 16:13] LABS: ALT/SGPT 53 U/L (12-78); AST/SGOT 20 U/L (15-37); Albumin 3.6 g/dL (3.4-5.0); Alkaline Phosphatase 82 U/L (45-117); BUN Blood Urea Nitrogen 11 mg/dL (7-18); Bicarbonate 29 mmol/L (21-32); Bilirubin Direct < 0.1 mg/dL (0-0.2); Bilirubin Total 0.2 mg/dL (0.2-1.0); Glucose Level 134 mg/dL (74-106); Magnesium 1.8 mg/dL (1.8-2.4); NT PRO-BNP 116 pg/mL (<125); Potassium 3.8 mmol/L (3.5-5.1); Protime INR 0.95; Sodium Level 135 mmol/L (136-145); Troponin (Emerg Dept Use Only) < 0.02 ng/mL (0.0-0.045)
[2020-12-22 16:17] LABS: Anisocytosis 1+; Blood Morphology Comment NOTED (NOT SEEN); Platelet Estimate ADEQ; White Blood Cell Scan OK (OK)
--- NOTE | 2020-12-22 16:41 | RAD REPORT ---
EXAM DESCRIPTION: RAD - Chest Single View - 12/22/2020 4:01 pm CLINICAL HISTORY: confusion, lung mass COMPARISON: CT chest December 13, single-view chest September 20 TECHNIQUE: AP portable chest image was obtained 12/22/2020 4:01 pm . FINDINGS: Right upper lobe mass has significantly diminished in size since the September 20 examination. No acute infiltrate, failure, volume overload or new mass lesion. Trachea remains midline. Heart and va sculature are normal. No measurable pleural effusion and no pneumothorax. No acute bony abnormality s een. No acute aortic findings suspected. IMPRESSION: No acute cardiopulmonary process. Known right upper lobe mass has shown significant reduction in size compared to September 20 imaging.
--- NOTE | 2020-12-22 17:09 | RAD REPORT ---
EXAM DESCRIPTION: CT - Head Brain Wo Cont - 12/22/2020 4:44 pm CLINICAL HISTORY: CONFUSED, known intracranial metastatic disease COMPARISON: Head Brain W/Wo Con dated 12/13/2020; Head Brain W/Wo Con dated 10/31/2020 TECHNIQUE: Axial 5 mm thick images of the head were obtained without IV contrast. All CT scans are performed using dose optimization technique as appropriate and may include automated exposure control or mA/KV adjustment according to patient size. FINDINGS: No intracranial hemorrhage is present. Patient has a known left parietal metastatic lesion . That lesion measures larger than the December 13 study. Mass was approximately 4 cm in AP diameter December 13 and now measures 4.5 cm. The amount of surrounding edema has also increased slightly. The right t emporal occipital junction 19 millimeter metastatic lesion has not changed significantly in size. The surrounding edema has not changed. No acute cortical based infarction identified. No midline shift. No abnormal extra-axial fluid collections. Ventricles are normal. Mastoid air cells and visualized portions of the paranasal sinuses are clear. No acute bony findings. IMPRESSION: No intracranial hemorrhage, midline shift or other emergent intracranial finding. The left parietal metastatic lesion shows enlargement in size since the December 13 study with an increas e in the amount of cerebral white matter edema.
--- NOTE | 2020-12-22 18:14 | EDPHYS ---
Physician Documentation [facility] Name: Genesis Camejo Age: 60 yrs Sex: Female : 1960 Arrival Date: 12/22/2020 Time: 11:52 Bed Treatment Private MD: DEEPIKA Physician Preston Marion HPI: 12/22 15:37 This 60 yrs old Female presents to ER via Wheelchair with complaints of kdr Passed Out Prior To Arrival. 15:37 The patient has experienced near-syncope. Onset: The symptoms/episode began/occurred at kdr an unknown time. Context: the episode(s) was witnessed, by a friend, occurred at home. Associated injury: The patient did not suffer any apparent associated injury. Associated signs and symptoms: Pertinent positives: confusion, weakness. Current symptoms: confusion. The patient has not experienced similar symptoms in the past. The patient has been recently seen by a physician:. The patient was diagnosed with lung cancer metastatic brain cancer in September of this year. Since she has had chemotherapy which ended about 2 weeks ago. Currently she is on her third day of radiation. She is also getting targeted immunotherapy. Patient feels that for the last few days she has had poor nutrition and hydration secondary to feeling poorly from the radiation. When her friends and family attempted to retrieve her from her home to take her to her radiation therapy today, they were not able to summon her from the parking lot as he normally did. She was unresponsive to any calls. After a few minutes, they went up to her apartment and found her to be disoriented and confused. They had not seen her in this condition since the onset and diagnosis earlier in September. The family and friends state that she was difficult to get up and out the door and down stairs to a car supposed to come to the ED. They were concerned that they would not be able to do it on their own. Since departing the house, the patient has been drinking fluids and seems to be more or less back to her baseline. Patient is alert and oriented and answering questions appropriately at the time of my initial exam.. Historical: - Allergies: 12:09 Codeine; ca1 12:09 PENICILLINS; ca1 - PMHx: 12:09 brain cancer; Lung Cancer; ca1 - Immunization history:: Client reports receiving the 2nd dose of the Covid vaccine, Client reports receiving the 1st dose of the Covid vaccine. - Social history:: Smoking status: Patient reports the use of cigarette tobacco products, smokes one-half pack cigarettes per day. ROS: 15:37 Constitutional: Negative for fever, chills, and weight loss, Eyes: Negative for injury, kdr pain, redness, and discharge, ENT: Negative for injury, pain, and discharge, Neck: Negative for injury, pain, and swelling, Cardiovascular: Negative for chest pain, palpitations, and edema, Respiratory: Negative for shortness of breath, cough, wheezing, and pleuritic chest pain, Abdomen/GI: Negative for abdominal pain, nausea, vomiting, diarrhea, and constipation, Back: Negative for injury and pain, : Negative for injury, bleeding, discharge, and swelling, MS/Extremity: Negative for injury and deformity, Skin: Negative for injury, rash, and discoloration, Psych: Negative for depression, anxiety, suicide ideation, homicidal ideation, and hallucinations, Allergy/Immunology: Negative for hives, rash, and allergies, Endocrine: Negative for neck swelling, polydipsia, polyuria, polyphagia, and marked weight changes, Hematologic/Lymphatic: Negative for swollen nodes, abnormal bleeding, and unusual bruising. 15:37 Neuro: Positive for altered mental status, weakness. Exam: 15:37 Constitutional: This is a well developed, well nourished patient who is awake, alert, kdr and in no acute distress. Head/Face: Normocephalic, atraumatic. Eyes: Pupils equal round and reactive to light, extra-ocular motions intact. Lids and lashes normal. Conjunctiva and sclera are non-icteric and not injected. Cornea within normal limits. Periorbital areas with no swelling, redness, or edema. Neck: Trachea midline, no thyromegaly or masses palpated, and no cervical lymphadenopathy. Supple, full range of motion without nuchal rigidity, or vertebral point tenderness. No Meningismus. Chest/axilla: Normal chest wall appearance and motion. Nontender with no deformity. No lesions are appreciated. Cardiovascular: Regular rate and rhythm with a normal S1 and S2. No gallops, murmurs, or rubs. Normal PMI, no JVD. No pulse deficits. Respiratory: Lungs have equal breath sounds bilaterally, clear to auscultation and percussion. No rales, rhonchi or wheezes noted. No increased work of breathing, no retractions or nasal flaring. Abdomen/GI: Soft, non-tender, with normal bowel sounds. No distension or tympany. No guarding or rebound. No evidence of tenderness throughout. Back: No spinal tenderness. No costovertebral tenderness. Full range of motion. Skin: Warm, dry with normal turgor. Normal color with no rashes, no lesions, and no evidence of cellulitis. MS/ Extremity: Pulses equal, no cyanosis. Neurovascular intact. Full, normal range of motion. Neuro: Awake and alert, GCS 15, oriented to person, place, time, and situation. Cranial nerves II-XII grossly intact. Motor strength 5/5 in all extremities. Sensory grossly intact. Cerebellar exam normal. Normal gait. Psych: Awake, alert, with orientation to person, place and time. Behavior, mood, and affect are within normal limits. Vital Signs: 12:06 BP 126 / 68; Pulse 81; Resp 18 S; Temp 98.4(TE); Pulse Ox 99% on R/A; Weight 63.5 kg ca1 (R); Height 5 ft. 4 in. (162.56 cm) (R); Pain 0/10; 14:42 BP 153 / 68 LA Supine (auto/reg); Pulse 81; kg 14:44 BP 156 / 72 LA Sitting (auto/reg); Pulse 83; kg 14:46 BP 155 / 66 LA Standing (auto/reg); Pulse 86 LA; Resp 18 S; Pulse Ox 100% on R/A; Pain kg 0/10; 16:45 BP 157 / 72; Pulse 77; Resp 19; Pulse Ox 99% on R/A; kg 17:45 BP 156 / 72; Pulse 75; Resp 18; Pulse Ox 97% on R/A; kg 12:06 Body Mass Index 24.03 (63.50 kg, 162.56 cm) ca1 MDM: 15:37 Data reviewed: vital signs, nurses notes, lab test result(s), radiologic studies. kdr Counseling: I had a detailed discussion with the patient and/or guardian regarding: the historical points, exam findings, and any diagnostic results supporting the discharge/admit diagnosis, lab results, radiology results. 18:13 Patient medically screened. kdr 18:23 ED course: I discussed the case with Dr. Herbert. He suggested that we increase the kdr Keppra dose to 500 mg twice daily. However, the patient was already on Keppra 500 mg twice daily so I increased the dosing to 1000 mg twice daily. I discussed this with the patient. I also paged Dr. Conroy. In the meantime the patient was discharged home in stable condition. They are happy with the care provided the plan for discharge and follow-up.. 12/22 15:35 Order name: Basic Metabolic Panel; Complete Time: 17:47 kdr 12/22 15:35 Order name: CBC with Diff; Complete Time: 17:47 kdr 12/22 15:35 Order name: LFT's; Complete Time: 17:47 kdr 12/22 15:35 Order name: Magnesium; Complete Time: 17:47 kdr 12/22 15:35 Order name: NT PRO-BNP; Complete Time: 17:47 kdr 12/22 15:35 Order name: PT-INR; Complete Time: 17:47 kdr 12/22 15:35 Order name: Troponin (emerg Dept Use Only); Complete Time: 17:47 kdr 12/22 15:35 Order name: XRAY Chest (1 view); Complete Time: 17:47 kdr 12/22 15:35 Order name: EKG; Complete Time: 15:36 kdr 12/22 15:35 Order name: Cardiac monitoring; Complete Time: 15:44 kdr 12/22 15:35 Order name: CT Head Brain wo Cont; Complete Time: 17:47 kdr 12/22 15:42 Order name: Urine Dipstick-Ancillary; Complete Time: 17:47 EDMS 12/22 16:17 Order name: CBC Smear Scan; Complete Time: 17:47 EDMS 12/22 15:35 Order name: EKG - Nurse/Tech; Complete Time: 15:45 kdr 12/22 15:35 Order name: IV Saline Lock; Complete Time: 15:44 kdr 12/22 15:35 Order name: Labs collected and sent; Complete Time: 15:44 kdr 12/22 15:35 Order name: O2 Per Protocol; Complete Time: 15:44 kdr 12/22 15:35 Order name: O2 Sat Monitoring; Complete Time: 15:44 kdr Administered Medications: 18:07 Drug: Keppra (levETIRAcetam) 500 mg Route: PO; kg 18:28 Follow up: Response: No adverse reaction kg Disposition Summary: 12/22/20 18:13 Discharge Ordered Location: Home kdr Problem: an acute exacerbation kdr Symptoms: have improved kdr Condition: Stable kdr Diagnosis - Altered mental status, unspecified kdr Followup: kdr - With: Private Physician - When: 2 - 3 days - Reason: If symptoms return, Further diagnostic work-up, Recheck today's complaints, Continuance of care, Re-evaluation by your physician Followup: kdr - With: Bailey Madrigal MD - When: 2 - 3 days - Reason: If symptoms return, Further diagnostic work-up, Recheck today's complaints, Continuance of care, Re-evaluation by your physician Discharge Instructions: - Discharge Summary Sheet kdr - Confusion kdr - Non-Epileptic Seizures, Adult kdr - Seizure, Adult, [id number] kdr Forms: - Medication Reconciliation Form kdr - Thank You Letter kdr Prescriptions: - Keppra 500 mg Oral Tablet - take 2 tablet by ORAL route every 12 hours; 28 tablet; Refills: 0, Product kdr Selection Permitted Signatures: Dispatcher [employer] Preston Jenkins MD MD kdr Fanta Bejarano, RN RN ca1 Ruthie Lucas RN RN kg
--- NOTE | 2020-12-22 18:14 | ER ---
Nurse's Notes [facility] Name: Genesis Camejo Age: 60 yrs Sex: Female : 1960 Arrival Date: 12/22/2020 Time: 11:52 Bed Treatment Private MD: Diagnosis: Altered mental status, unspecified Presentation: 12/22 12:06 Chief complaint: Patient states: I got lung and brain cancer. I just started chemo and ca1 radiation days ago. I got dizzy this morning, I don't think I passed out but I was down on the floor and I had a hard time getting back up. Coronavirus screen: Client denies travel out of the [place] in the last 14 days. At this time, the client does not indicate any symptoms associated with coronavirus-19. Ebola Screen: Patient negative for fever greater than or equal to 101.5 degrees Fahrenheit, and additional compatible Ebola Virus Disease symptoms Patient denies exposure to infectious person. Patient denies travel to an Ebola-affected area in the 21 days before illness onset. No symptoms or risks identified at this time. Initial Sepsis Screen: Does the patient meet any 2 criteria? No. Patient's initial sepsis screen is negative. Does the patient have a suspected source of infection? No. Patient's initial sepsis screen is negative. Risk Assessment: Do you want to hurt yourself or someone else? Patient reports no desire to harm self or others. Onset of symptoms was December 22, 2020. 12:06 Method Of Arrival: Wheelchair ca1 12:06 Acuity: NASH 3 ca1 Historical: - Allergies: 12:09 Codeine; ca1 12:09 PENICILLINS; ca1 - PMHx: 12:09 brain cancer; Lung Cancer; ca1 - Immunization history:: Client reports receiving the 2nd dose of the Covid vaccine, Client reports receiving the 1st dose of the Covid vaccine. - Social history:: Smoking status: Patient reports the use of cigarette tobacco products, smokes one-half pack cigarettes per day. Screenin:22 Abuse screen: Denies threats or abuse. Denies injuries from another. Nutritional kg screening: No deficits noted. Tuberculosis screening: No symptoms or risk factors identified. Fall Risk Fall in past 12 months (25 points). No secondary diagnosis (0 pts). IV access (20 points). Ambulatory Aid- None/Bed Rest/Nurse Assist (0 pts). Gait- Weak (10 pts.). Mental Status- Oriented to own ability (0 pts). Total Alfred Fall Scale indicates No Risk (0-24 pts). Assessment: 15:21 General: Appears in no apparent distress. Behavior is calm, cooperative, appropriate kg for age, quiet. Pain: Denies pain. Neuro: Level of Consciousness is awake, alert, obeys commands, Oriented to person, place, time, situation, Appropriate for age Solar Maintenance Technician are equal bilaterally Moves all extremities. Full function Gait is unsteady, Reports dizziness. Cardiovascular: Reports lightheadedness, Heart tones S1 S2 Capillary refill < 3 seconds. Respiratory: Airway is patent Trachea midline Respiratory effort is even, unlabored, relaxed, Respiratory pattern is regular, Breath sounds are diminished bilaterally. GI: No deficits noted. : No deficits noted. EENT: No deficits noted. Derm: No deficits noted. Musculoskeletal: Reports weakness in Generalized. Vital Signs: 12:06 BP 126 / 68; Pulse 81; Resp 18 S; Temp 98.4(TE); Pulse Ox 99% on R/A; Weight 63.5 kg ca1 (R); Height 5 ft. 4 in. (162.56 cm) (R); Pain 0/10; 14:42 BP 153 / 68 LA Supine (auto/reg); Pulse 81; kg 14:44 BP 156 / 72 LA Sitting (auto/reg); Pulse 83; kg 14:46 BP 155 / 66 LA Standing (auto/reg); Pulse 86 LA; Resp 18 S; Pulse Ox 100% on R/A; Pain kg 0/10; 16:45 BP 157 / 72; Pulse 77; Resp 19; Pulse Ox 99% on R/A; kg 17:45 BP 156 / 72; Pulse 75; Resp 18; Pulse Ox 97% on R/A; kg 12:06 Body Mass Index 24.03 (63.50 kg, 162.56 cm) ca1 ED Course: 11:52 Patient arrived in ED. rg4 12:08 Triage completed. ca1 12:09 Arm band placed on right wrist. ca1 14:56 Ruthie Lucas RN is Primary Nurse. kg 15:03 Preston Marion MD is Attending Physician. kdr 15:30 Inserted saline lock: 20 gauge in left antecubital area, using aseptic technique. kg 16:00 Patient has correct armband on for positive identification. kg 16:01 XRAY Chest (1 view) In Process Unspecified. EDMS 16:45 CT Head Brain wo Cont In Process Unspecified. EDMS 18:13 Bailey Madrigal MD is Referral Physician. kdr 18:29 No provider procedures requiring assistance completed. IV discontinued, intact, kg bleeding controlled, No redness/swelling at site. Pressure dressing applied. Administered Medications: 18:07 Drug: Keppra (levETIRAcetam) 500 mg Route: PO; kg 18:28 Follow up: Response: No adverse reaction kg Outcome: 18:13 Discharge ordered by MD. kdr 18:29 Discharged to home ambulatory, with family. kg 18:29 Condition: improved 18:29 Discharge instructions given to patient, family, Instructed on discharge instructions, follow up and referral plans. Demonstrated understanding of instructions, follow-up care, medications, Prescriptions given X 1. 18:30 Patient left the ED. kg Signatures: Dispatcher [employer] EDMS Preston Marion MD MD kdr Rupa Kilgore rg4 Fanta Bejarano, RN RN ca1 Ruthie Lucas, GONZALES RN kg
[2020-12-22] MEDS ORDERED: levETIRAcetam 500 MG TAB ONE (18:31)
[2020-12-22 18:39] VITALS: TEMP 98.4
[2020-12-22 18:49] VITALS: BP 156/72; O2SAT 97
--- NOTE | 2020-12-23 10:51 | EKG ---
Test Date: 2020-12-22 Test Time: 15:50:15 Chainstitch Felled Seam Operator: ROBERT MEASUREMENT RESULTS: Intervals: Rate: 74 WY: 126 QRSD: 82 QT: 398 QTc: 441 Letts: P: WY: 126 QRS: 69 T: 52 INTERPRETIVE STATEMENTS: Normal sinus rhythm Normal ECG Compared to ECG 09/20/2020 20:22:13 Atrial abnormality no longer present Electronically Signed On 12-23-20 10:48:25 CDT by Micha Santos
== END 2020-12-22 18:30 | disposition home or self-care (01) ==
LOC: ER 11:51
DX: R41.82 Altered mental status, unspecified (principal); F17.210 Nicotine dependence, cigarettes, uncomplicated; Z88.5 Allergy status to narcotic agent; Z88.0 Allergy status to penicillin; Z85.118 Personal history of other malignant neoplasm of bronchus and lung; Z85.841 Personal history of malignant neoplasm of brain
CPT/HCPCS: 36415; 70450; 71045; 80048; 80076; 81003; 83735; 83880; 84484; 85025; 85610; 93005; 99284

== ENCOUNTER 2021-03-10 17:24 | Inpatient (IN) | payer OTHER ==
[2021-03-10 18:54] LABS: Absolute Lymphocytes (CBC) 0.3 K/uL (0.7-4.9); Basophils % 0.1 % (0-1.3); Hematocrit 39.5 % (36.0-45.0); Lymphocytes % 2.1 % (15.3-44.8); MPV 7.2 fL (7.6-11.3)
[2021-03-10 18:55] LABS: Protime INR 1.01
[2021-03-10] MEDS ORDERED: BISACODYL 10 MG RECTAL SUPP ONE (18:56)
[2021-03-10] MEDS ORDERED: FENTANYL CITR 100 MCG/2 ML ONE ×2 (18:56→20:46)
[2021-03-10] MEDS ORDERED: ONDANSETRON 4 MG/2 ML VIAL ONE ×2 (18:56→20:46)
[2021-03-10] MEDS ORDERED: NA CHLORIDE 0.9% 1,000 ML ONE (18:57)
[2021-03-10] MEDS ORDERED: LACTULOSE 20 GM/30 ML UCUP ONE (18:57)
[2021-03-10] MEDS ORDERED: FAMOTIDINE 20 MG/2 ML VIAL IV ONE (18:57)
[2021-03-10 19:10] LABS: ALT/SGPT 45 U/L (12-78); AST/SGOT 17 U/L (15-37); Albumin 2.9 g/dL (3.4-5.0); Alkaline Phosphatase 108 U/L (45-117); BUN Blood Urea Nitrogen 18 mg/dL (7-18); Bicarbonate 27 mmol/L (21-32); Bilirubin Direct 0.1 mg/dL (0-0.2); Bilirubin Total 0.4 mg/dL (0.2-1.0); Glucose Level 124 mg/dL (74-106); Lipase 95 U/L (73-393); Magnesium 1.9 mg/dL (1.8-2.4); NT PRO-BNP 504 pg/mL (<125); Potassium 3.1 mmol/L (3.5-5.1); Protein, Total 6.4 g/dL (6.4-8.2); Sodium Level 137 mmol/L (136-145); Troponin (Emerg Dept Use Only) < 0.02 ng/mL (0.0-0.045)
--- NOTE | 2021-03-10 19:23 | RAD REPORT ---
EXAM DESCRIPTION: RAD - Chest Single View - 03/10/2021 7:00 pm CLINICAL HISTORY: COUGH Chest pain. COMPARISON: 12/22/2020 FINDINGS: Portable technique limits examination quality. The lungs are grossly clear. Previously noted right upper lobe mass has significantly diminished in s ize since prior comparative radiograph. The heart is normal in size. No displaced fractures.
--- NOTE | 2021-03-10 19:36 | ER ---
Nurse's Notes [facility] Name: Genesis Camejo Age: 61 yrs Sex: Female : 1960 Arrival Date: 03/10/2021 Time: 17:29 Bed 8 Private MD: Diagnosis: Acute pain, not elsewhere classified-chest wall, lower back, stage 4 metastatic small cell cancer;Weakness;Hypokalemia Presentation: 03/10 17:29 Chief complaint: EMS states: Pt has Hx of stage 4 brain and lung cancer. Today Rib pain ch5 is 7/10, denies injury. still smokes 1-2 cigarettes a day. Coronavirus screen: Vaccine status: Patient reports receiving the 2nd dose of the covid vaccine. Ebola Screen: Patient negative for fever greater than or equal to 101.5 degrees Fahrenheit, and additional compatible Ebola Virus Disease symptoms Patient denies exposure to infectious person. Patient denies travel to an Ebola-affected area in the 21 days before illness onset. Initial Sepsis Screen: Does the patient meet any 2 criteria? No. Patient's initial sepsis screen is negative. Does the patient have a suspected source of infection? No. Patient's initial sepsis screen is negative. Risk Assessment: Do you want to hurt yourself or someone else? Patient reports no desire to harm self or others. 17:29 Method Of Arrival: EMS: [facility] 17:29 Acuity: NASH 3 ch5 22:06 Onset of symptoms was March 06, 2021. df1 22:[address] chest be done tomorrow. Provider notified. Admitting floor df1 notified. Triage Assessment: 17:29 General: Appears uncomfortable, Behavior is calm, cooperative. Pain: Complains of pain ch5 in Bilat Rib pain from coughing. Historical: - Home Meds: 21:59 dexamethasone 4 mg Oral tab 1 tab 2 times per day [Active]; Keppra 500 mg Oral tab 1 df1 tab every morning [Active]; Keppra 500 mg Oral tab 2 tabs nightly [Active]; - PMHx: 21:59 lung cancer with mets to brain; df1 - PSHx: 21:59 section; df1 - Immunization history:: Adult Immunizations not up to date, Client reports receiving the 2nd dose of the Covid vaccine. - Social history:: Smoking status: Patient reports the use of cigarette tobacco products, " a few hits off a few cigarettes a day". - Family history:: not pertinent. Screenin:33 Abuse screen: Denies threats or abuse. Denies injuries from another. Nutritional 5 screening: No deficits noted. Tuberculosis screening: No symptoms or risk factors identified. Fall Risk None identified. Assessment: 17:32 Reassessment: No changes from previously documented assessment. 5 19:22 Reassessment: Patient appears in no apparent distress at this time. PT TO CT, LAB sj1 CALLED FOR BLOOD CULT \\T\\ LAC COLLECT. Vital Signs: 17:29 BP 133 / 9; Pulse 99; Resp 22; Temp 98.8; Pulse Ox 96% on R/A; Weight 63.5 kg; Height 5 ch5 ft. 4 in. (162.56 cm); Pain 7/10; 17:34 BP 139 / 99; Pulse 105; Resp 22; Temp 98.8; Pulse Ox 96% on R/A; ch5 21:03 BP 145 / 70; Pulse 86; Resp 18; Pulse Ox 95% on R/A; df1 17:29 Body Mass Index 24.03 (63.50 kg, 162.56 cm) [facility] ED Course: 17:29 Patient arrived in ED. 5 17:29 Shiva Fox, RN is Primary Nurse. 5 17:32 Triage completed. 5 17:33 Patient has correct armband on for positive identification. Bed in low position. Call [facility] light in reach. Side rails up X2. 17:33 No provider procedures requiring assistance completed. ch5 18:02 Davy Gardner MD is Attending Physician. veda 18:38 Initial lab(s) drawn, by ks, sent to lab. Inserted saline lock: 22 gauge in left iw antecubital area, using aseptic technique. Blood collected. 18:53 XRAY Chest (1 view) Sent. ch5 18:53 Magnesium Sent. ch5 18:53 LFT's Sent. ch5 18:53 CBC with Diff Sent. ch5 18:53 Basic Metabolic Panel Sent. ch5 18:54 Troponin (emerg Dept Use Only) Sent. ch5 18:54 PT-INR Sent. ch5 18:54 NT PRO-BNP Sent. ch5 18:54 Lipase Sent. ch5 18:54 Basic Metabolic Panel Sent. ch5 18:54 CBC with Automated Diff Sent. ch5 18:54 Magnesium Sent. ch5 18:54 Liver (Hepatic) Function Sent. ch5 18:54 SARS-COV-2 RT PCR Sent. ch5 19:01 XRAY Chest (1 view) In Process Unspecified. EDMS 19:33 Kumar Mello is Hospitalizing Provider. veda 20:59 Inserted saline lock: 20 gauge in right wrist, using aseptic technique. sj1 21:04 Inserted saline lock: 20 gauge in left wrist, using aseptic technique. df1 22:06 Arm band placed on right wrist. df1 22:07 Head Brain Wo Cont CT Sent. df1 22:50 Patient admitted, IV remains in place. df1 Administered Medications: 18:52 Drug: NS 0.9% 1000 ml Route: IV; Rate: 1 bolus; Site: left antecubital; ch5 22:10 Follow up: IV Status: Completed infusion; IV Intake: 1000ml df1 18:53 Drug: Pepcid (famotidine) 20 mg Route: IVP; Site: left antecubital; ch5 18:53 Drug: fentaNYL (PF) 50 mcg Route: IVP; Site: left antecubital; ch5 18:53 Drug: Zofran (Ondansetron) 4 mg Route: IVP; Site: left antecubital; ch5 21:02 Drug: fentaNYL (PF) 50 mcg Route: IVP; Site: right wrist; df1 22:09 Follow up: Response: Pain is decreased df1 21:02 Drug: Zofran (Ondansetron) 4 mg Route: IVP; Site: right wrist; df1 22:08 Follow up: Response: Nausea is decreased df1 21:02 Drug: Potassium Effervescent Tablet 25 mEq Route: PO; df1 22:08 Follow up: Response: No adverse reaction df1 21:02 Drug: NS 0.9% with KCl 20 mEq/L 1000 ml Route: IV; Rate: 125 ml/hr; Site: right wrist; df1 22:09 Follow up: Response: No adverse reaction df1 21:24 Drug: Rocephin (cefTRIAXone) 1 grams Route: IV; Rate: per protocol; Site: right wrist; df1 22:08 Follow up: IV Status: Completed infusion; IV Intake: 10ml df1 22:10 Not Given (Patient Refused): Lactulose 30 grams 45 ml PO once df1 22:10 Not Given (Patient Refused): Dulcolax (bisacodyl) Suppository 10 mg MT once df1 Intake: 22:08 IV: 10ml; Total: 10ml. df1 22:10 IV: 1000ml; Total: 1010ml. df1 Outcome: 19:35 Decision to Hospitalize by Provider. veda 22:49 Admitted to Med/surg accompanied by tech. df1 22:49 Condition: stable 22:49 Instructed on the need for admit. 22:50 Patient left the ED. df1 Signatures: Dispatcher [employer] EDNC Davy Gardner MD MD cha Williams, Irene, RN RN Shiva Fox RN RN ch5 Furlich, Dawn df1 Opal Bridges RN RN sj1 Corrections: (The following items were deleted from the chart) 17:34 17:33 PMHx: Lung Cancer; ch5 ch5 17:34 17:33 PMHx: brain cancer; ch5 ch5
--- NOTE | 2021-03-10 19:37 | EDPHYS ---
Physician Documentation [facility] Name: Genesis Camejo Age: 61 yrs Sex: Female : 1960 Arrival Date: 03/10/2021 Time: 17:29 Bed 8 Private MD: ED Physician Davy Gardner HPI: 03/10 18:26 This 61 yrs old Female presents to ER via EMS with complaints of pain all veda over , chest wall , no bm. 18:26 The patient or guardian reports chest pain that is located primarily in the anterior veda chest wall, bilaterally. Onset: 3 day(s) ago. stage 4 small cell. The pain does not radiate. Onset: The symptoms/episode began/occurred 3 day(s) ago. Associated signs and symptoms: Pertinent positives: abdominal pain, nausea. The chest pain is described as aching. Modifying factors: The symptoms are alleviated by remaining still, the symptoms are aggravated by movement. Severity of pain: At its worst the pain was moderate in the emergency department the pain is unchanged. Historical: - Home Meds: 21:59 dexamethasone 4 mg Oral tab 1 tab 2 times per day [Active]; Keppra 500 mg Oral tab 1 df1 tab every morning [Active]; Keppra 500 mg Oral tab 2 tabs nightly [Active]; - PMHx: 21:59 lung cancer with mets to brain; df1 - PSHx: 21:59 section; df1 - Immunization history:: Adult Immunizations not up to date, Client reports receiving the 2nd dose of the Covid vaccine. - Social history:: Smoking status: Patient reports the use of cigarette tobacco products, " a few hits off a few cigarettes a day". - Family history:: not pertinent. ROS: 18:26 Constitutional: Negative for fever, chills, and weight loss, Eyes: Negative for injury, veda pain, redness, and discharge, ENT: Negative for injury, pain, and discharge, Neck: Negative for injury, pain, and swelling, Abdomen/GI: Negative for abdominal pain, nausea, vomiting, diarrhea, and constipation, Back: Negative for injury and pain, : Negative for injury, bleeding, discharge, and swelling, MS/Extremity: Negative for injury and deformity, Skin: Negative for injury, rash, and discoloration, Neuro: Negative for headache, weakness, numbness, tingling, and seizure. 18:26 Cardiovascular: Positive for chest pain, of the chest. 18:26 Respiratory: Positive for cough, with no reported sputum. 18:26 Abdomen/GI: Positive for abdominal pain, constipation. Exam: 18:26 Constitutional: This is a well developed, well nourished patient who is awake, alert, veda and in no acute distress. Head/Face: Normocephalic, atraumatic. Eyes: Pupils equal round and reactive to light, extra-ocular motions intact. Lids and lashes normal. Conjunctiva and sclera are non-icteric and not injected. Cornea within normal limits. Periorbital areas with no swelling, redness, or edema. ENT: Nares patent. No nasal discharge, no septal abnormalities noted. Tympanic membranes are normal and external auditory canals are clear. Oropharynx with no redness, swelling, or masses, exudates, or evidence of obstruction, uvula midline. Mucous membranes moist. Neck: Trachea midline, no thyromegaly or masses palpated, and no cervical lymphadenopathy. Supple, full range of motion without nuchal rigidity, or vertebral point tenderness. No Meningismus. Chest/axilla: Normal chest wall appearance and motion. Nontender with no deformity. No lesions are appreciated. Respiratory: Lungs have equal breath sounds bilaterally, clear to auscultation and percussion. No rales, rhonchi or wheezes noted. No increased work of breathing, no retractions or nasal flaring. Abdomen/GI: Soft, non-tender, with normal bowel sounds. No distension or tympany. No guarding or rebound. No evidence of tenderness throughout. Back: No spinal tenderness. No costovertebral tenderness. Full range of motion. Skin: Warm, dry with normal turgor. Normal color with no rashes, no lesions, and no evidence of cellulitis. MS/ Extremity: Pulses equal, no cyanosis. Neurovascular intact. Full, normal range of motion. Neuro: Awake and alert, GCS 15, oriented to person, place, time, and situation. Cranial nerves II-XII grossly intact. Motor strength 5/5 in all extremities. Sensory grossly intact. Cerebellar exam normal. Normal gait. Psych: Awake, alert, with orientation to person, place and time. Behavior, mood, and affect are within normal limits. 18:26 Cardiovascular: Rate: tachycardic, Rhythm: regular, Pulses: Pulses are 4+ in bilateral radial, brachial, femoral, popliteal, posterior tibial and and dorsalis pedis arteries.. Heart sounds: normal, Edema: is not appreciated, JVD: is not appreciated. Vital Signs: 17:29 BP 133 / 9; Pulse 99; Resp 22; Temp 98.8; Pulse Ox 96% on R/A; Weight 63.5 kg; Height 5 ch5 ft. 4 in. (162.56 cm); Pain 7/10; 17:34 BP 139 / 99; Pulse 105; Resp 22; Temp 98.8; Pulse Ox 96% on R/A; ch5 21:03 BP 145 / 70; Pulse 86; Resp 18; Pulse Ox 95% on R/A; df1 17:29 Body Mass Index 24.03 (63.50 kg, 162.56 cm) ch5 MDM: 18:02 Patient medically screened. veda 18:36 Differential diagnosis: abnormal EKG, acute myocardial infarction, acute pericarditis, veda anxiety, coronary artery disease chest wall pain, cholecystitis, Cholelithiasis pancreatitis, pleurisy, pulmonary embolus, stable angina, unstable angina. Differential Diagnosis sepsis. HEART Score: History: Slightly Suspicious (0), Age: > 45 and < 65 years (1), Risk Factors: No Risk Factors Known (0). The patient was not given aspirin in the Emergency Department. The patient's deep vein thrombosis risk score was calculated as follows: Total Score: 0. This patient was found to be at low risk for a deep vein thrombosis by using the Well's assessment criteria. The patient's pulmonary embolism risk score was calculated as follows: malignancy Total Score: 0-2 points. This patient was found to be at low risk for a pulmonary embolism by using the Well's assessment criteria. RAYMUNDO Risk Score: TOTAL SCORE = 0. Data reviewed: vital signs, nurses notes, lab test result(s), EKG, radiologic studies. Data interpreted: air sampling and monitoring: rate is 105 beats/min, rhythm is regular, Pulse oximetry: on room air is 96 %. Test interpretation: by ED physician or midlevel provider: ECG, plain radiologic studies. 03/10 18: Order name: Basic Metabolic Panel veda 03/10 18: Order name: CBC with Diff [facility] 10/22 18:25 Order name: LFT's [facility] 03/10 18:25 Order name: Magnesium [facility] 03/10 18:25 Order name: NT PRO-BNP; Complete Time: 19:18 [facility] 03/10 18:25 Order name: PT-INR; Complete Time: 19:08 [facility] 03/10 18:25 Order name: Troponin (emerg Dept Use Only); Complete Time: 19:18 [facility] 03/10 18:25 Order name: Lipase; Complete Time: 19:18 [facility] 03/10 18:26 Order name: Basic Metabolic Panel; Complete Time: 19:18 [facility] 03/10 18:26 Order name: CBC with Automated Diff EDMN 03/10 18:26 Order name: Liver (Hepatic) Function; Complete Time: 19:18 [facility] 03/10 18:26 Order name: Magnesium; Complete Time: 19:18 [facility] 03/10 18:38 Order name: Lactate [facility] 03/10 18:25 Order name: XRAY Chest (1 view); Complete Time: 19:27 [facility] 03/10 18:38 Order name: Blood Culture Adult (2) [facility] 03/10 18:50 Order name: SARS-COV-2 RT PCR [facility] 03/10 19:39 Order name: Urine Culture [facility] 03/10 19:58 Order name: CBC Smear Scan EDMN 03/10 20:16 Order name: Urine Dipstick-Ancillary [facility] 03/10 21:31 Order name: Head Brain Wo Cont CT ej 03/10 21:43 Order name: Chest Abdomen Pelvis W Con CT ej 03/10 21:52 Order name: Extrem Venous W Compression Anselmo US ej 03/10 21:59 Order name: CT [facility] 03/10 18:25 Order name: EKG; Complete Time: 18:26 [facility] 03/10 18:25 Order name: Cardiac monitoring; Complete Time: 18:53 [facility] 03/10 18:25 Order name: EKG - Nurse/Tech; Complete Time: 20:23 [facility] 03/10 18:25 Order name: IV Saline Lock; Complete Time: 18:38 [facility] 03/10 18:25 Order name: Labs collected and sent; Complete Time: 18:39 [facility] 03/10 18:25 Order name: O2 Per Protocol; Complete Time: 18:53 [facility] 03/10 18:25 Order name: O2 Sat Monitoring; Complete Time: 18:53 [facility] 03/10 19:39 Order name: Urine Dipstick-Ancillary (obtain specimen); Complete Time: 20:23 veda Administered Medications: 18:52 Drug: NS 0.9% 1000 ml Route: IV; Rate: 1 bolus; Site: left antecubital; ch5 22:10 Follow up: IV Status: Completed infusion; IV Intake: 1000ml df1 18:53 Drug: Pepcid (famotidine) 20 mg Route: IVP; Site: left antecubital; ch5 18:53 Drug: fentaNYL (PF) 50 mcg Route: IVP; Site: left antecubital; ch5 18:53 Drug: Zofran (Ondansetron) 4 mg Route: IVP; Site: left antecubital; ch5 21:02 Drug: fentaNYL (PF) 50 mcg Route: IVP; Site: right wrist; df1 22:09 Follow up: Response: Pain is decreased df1 21:02 Drug: Zofran (Ondansetron) 4 mg Route: IVP; Site: right wrist; df1 22:08 Follow up: Response: Nausea is decreased df1 21:02 Drug: Potassium Effervescent Tablet 25 mEq Route: PO; df1 22:08 Follow up: Response: No adverse reaction df1 21:02 Drug: NS 0.9% with KCl 20 mEq/L 1000 ml Route: IV; Rate: 125 ml/hr; Site: right wrist; df1 22:09 Follow up: Response: No adverse reaction df1 21:24 Drug: Rocephin (cefTRIAXone) 1 grams Route: IV; Rate: per protocol; Site: right wrist; df1 22:08 Follow up: IV Status: Completed infusion; IV Intake: 10ml df1 22:10 Not Given (Patient Refused): Lactulose 30 grams 45 ml PO once df1 22:10 Not Given (Patient Refused): Dulcolax (bisacodyl) Suppository 10 mg [place] once df1 Disposition Summary: 03/10/21 19:35 Hospitalization Ordered Hospitalization Status: Observation veda Provider: Kumar Mello cha Location: Telemetry/MedSurg (observation) veda Condition: Fair veda Problem: new veda Symptoms: have improved veda Bed/Room Type: Standard [facility] Room Assignment: 210(03/10/21 21:29) mw Diagnosis - Acute pain, not elsewhere classified - chest wall, lower back, stage 4 metastatic veda small cell cancer - Weakness veda - Hypokalemia veda Forms: - Medication Reconciliation Form veda - SBAR form veda Signatures: Dispatcher [employer] EDMS Ros Perez RN RN mw Anderson, Corey, MD MD cha Heath, Christopher, RN RN ch5 Mary Beth Huddleston df1 Corrections: (The following items were deleted from the chart) 17:34 17:33 PMHx: Lung Cancer; [place] [id number] 17:34 17:33 PMHx: brain cancer; [place] [id number] 18:50 18:26 CORONAVIRUS+MR.LAB.BRZ ordered. EDMS EDMS 19:44 18:26 Head C Spine CAP W Con+CT.RAD.BRZ ordered. EDMS EDMS 21:29 19:35 veda
[2021-03-10 19:58] LABS: Blood Morphology Comment NOT SEEN (NOT SEEN); Platelet Estimate ADEQ; White Blood Cell Scan OK (OK)
[2021-03-10 20:16] LABS: Urine Blood 1+ (Negative); Urine Glucose Negative (Negative); Urine Protein Trace (Negative); Urine Specific Gravity >=1.030 (1.005-1.030)
[2021-03-10] MEDS ORDERED: CEFTRIAXONE 1000 MG/VIAL ONE (20:46)
[2021-03-10] MEDS ORDERED: POTASSIUM 25 MEQ EFFERV TAB ONE (20:46)
[2021-03-10] MEDS ORDERED: NS KCL 20MEQ 1,000 ML IV ONE (20:46)
--- NOTE | 2021-03-10 21:51 | P.HP ---
Certification for Inpatient Patient admitted to: Inpatient With expected LOS: <2 Midnights Patient will require the following post-hospital care: Hospice Practitioner: I am a practitioner with admitting privileges, knowledge of patient current condition, hospital course, and medical plan of care. Services: Services provided to patient in accordance with Admission requirements found in Title 42 Section 412.3 of the Code of Federal Regulations Patient History Date of Service: 03/10/21 Reason for admission: intractable pain History of Present Illness: Ms. 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 The pain is now so bad she cannot get comfortable at home. She has been couch/bed bound for the past few weeks, and for the past few days she has been too weak to stand and has to have assistance to do so. Reports weakness, nausea, abdominal pain and constipation. Per her sister, she has been eating less as well. Patient sees Dr. Conroy. She has been too weak to go to her followup appointments. Note from 02/23, says if patient continues to decline over the next two weeks, they will refer to hospice. WBC 13.3, K 3.1, BNP 504 Allergies codeine Allergy (Unverified 03/10/21 21:40) unknown Penicillins Allergy (Unverified 03/10/21 21:40) unknown - Past Medical/Surgical History Has patient received pneumonia vaccine in the past: No Diabetic: No -: stage 4 small cell lung cancer with brain metastasis -: C section - Family History Family History: Reviewed- Non-Contributory - Social History Smoking Status: Current every day smoker Alcohol use: No CD- Drugs: No Caffeine use: Yes Place of Residence: Home Review of Systems 10-point ROS is otherwise unremarkable General: Weakness, As per HPI Eyes: Unremarkable ENT: Unremarkable Respiratory: Unremarkable Cardiovascular: Chest Pain, As per HPI Gastrointestinal: Nausea, As per HPI Genitourinary: Unremarkable Musculoskeletal: Back Pain, As per HPI Integumentary: Unremarkable Neurological: Unremarkable Lymphatics: Unremarkable Physical Examination - Physical Exam General: Alert, In no apparent distress HEENT: Atraumatic, PERRLA, Mucous membr. moist/pink, EOMI, Sclerae nonicteric Neck: Supple, 2+ carotid pulse no bruit, No LAD, Without JVD or thyroid abnormality Respiratory: Clear to auscultation bilaterally, Normal air movement Cardiovascular: Regular rate/rhythm, Normal S1 S2 Gastrointestinal: Normal bowel sounds, No tenderness Musculoskeletal: No tenderness Integumentary: No rashes Neurological: Normal speech, Normal tone, Sensation intact, Normal affect, Abnormal strength Lymphatics: No axilla or inguinal lymphadenopathy - Studies Laboratory Data (last 24 hrs) 03/10/21 18:35: PT 11.6, INR 1.01 03/10/21 18:35: WBC 13.30 H, Hgb 13.6, Hct 39.5, Plt Count 151 L 03/10/21 18:35: Sodium 137, Potassium 3.1 L, BUN 18, Creatinine 0.46 L, Glucose 124 H, Magnesium 1.9, Total Bilirubin 0.4, AST 17, ALT 45, Alkaline Phosphatase 108, Lipase 95 Assessment and Plan - Problems (Diagnosis) (1) SCLC (small cell lung carcinoma) Current Visit: Yes Status: Chronic (2) Brain metastases Current Visit: Yes Status: Chronic - Plan continue with pain management continue gentle IVF hydration, antiemetics as needed dietitian consulted stool softeners as needed procal and lactate pending facilitate discussion for hospice care with family and oncology Discharge Plan: Home Plan to discharge in: 48 Hours - Advance Directives Does patient have a Living Will: No Does patient have a Durable POA for Healthcare: No - Code Status/Comfort Care Code Status Assessed: Yes (full code ) Critical Care: No Time Spent Managing Pts Care (In Minutes): 70
--- NOTE | 2021-03-10 21:57 | RAD REPORT ---
EXAM DESCRIPTION: CT - Head Brain Wo Cont - 03/10/2021 9:43 pm CLINICAL HISTORY: stage 4 SCLC Headache COMPARISON: 12/22/2020 TECHNIQUE: All CT scans are performed using dose optimization technique as appropriate and may inclu de automated exposure control or mA/KV adjustment according to patient size. FINDINGS: Brain edema surrounding a metastatic deposit in the left parietal lobe is again seen.Since the 01/06/21 study, the metastatic lesion has markedly reduced in size, currently measuring 10 mm, p reviously 41 mm.The right parietal region metastatic deposit has also likely diminished in size as so mewhat difficult to visualize on today's examination. No acute hemorrhage or midline shift is evident. No hydrocephalus. The paranasal sinuses and mastoids are clear. IMPRESSION: No acute hemorrhage is seen. Significant decrease in size of intracranial metastatic deposits since 12/22/2020.
[2021-03-10] MEDS ORDERED: ONDANSETRON 4 MG/2 ML VIAL IV PRN (23:15)
[2021-03-10] MEDS ORDERED: DOCUSATE NA/SENNA CONC 1 TAB PO PRN (23:15)
[2021-03-10] MEDS ORDERED: POLYETHYL GLY 3350 17 GM/DOSE PO PRN (23:15)
[2021-03-10] MEDS: NA CHLORIDE 0.9% 1,000 ML IV SCH (23:34)
[2021-03-11 00:08] VITALS: BMI 24.0
[2021-03-11] MEDS: FENTANYL CITR 100 MCG/2 ML IV PRN ×4 (02:00→23:13)
[2021-03-11 06:24] LABS: Lymphocytes % 3.8 % (15.3-44.8); MPV 7.7 fL (7.6-11.3); RBC Red Blood Cell Count 3.53 M/uL (3.86-4.86)
[2021-03-11 06:25] LABS: Absolute Lymphocytes (CBC) 0.4 K/uL (0.7-4.9); Basophils % 0.1 % (0-1.3)
[2021-03-11 06:50] LABS: ALT/SGPT 42 U/L (12-78); AST/SGOT 18 U/L (15-37); Albumin 2.5 g/dL (3.4-5.0); Alkaline Phosphatase 99 U/L (45-117); BUN Blood Urea Nitrogen 14 mg/dL (7-18); Bicarbonate 26 mmol/L (21-32); Bilirubin Total 0.3 mg/dL (0.2-1.0); Glucose Level 96 mg/dL (74-106); Magnesium 1.8 mg/dL (1.8-2.4); Phosphorus 2.7 mg/dL (2.5-4.9); Protein, Total 5.6 g/dL (6.4-8.2); Sodium Level 139 mmol/L (136-145)
[2021-03-11] MEDS ORDERED: POTASSIUM 25 MEQ EFFERV TAB PO ONE (09:00)
[2021-03-11] MEDS ORDERED: INFLUENZA VACCINE (for 6+ mo) 0.5 ML DOSE IMVAC ONE (09:00)
[2021-03-11] MEDS ORDERED: MAGNESIUM SULFATE 1 gm IVPB 1 GM/100 ML BAG IV ONE (09:00)
--- NOTE | 2021-03-11 09:16 | RAD REPORT ---
EXAM DESCRIPTION: US - Extrem Venous W Compress Anselmo - 03/10/2021 11:44 pm CLINICAL HISTORY: Swelling COMPARISON: None. TECHNIQUE: Real-time sonographic evaluation of the bilateral lower extremity deep venous systems was performed. FINDINGS: Normal compressibility, flow augmentation, phasic flow and spontaneous flow is identified in both the left and right lower extremity deep venous systems. No intraluminal filling defects seen. IMPRESSION: No DVT in either lower extremity.
[2021-03-11] MEDS: ENOXAPARIN 40 MG/0.4 ML SQ SCH (10:32)
[2021-03-11] MEDS: NA CHLORIDE 0.9% 1,000 ML IV SCH (10:32)
--- NOTE | 2021-03-11 12:46 | P.PN ---
Subjective Date of Service: 03/11/21 Chief Complaint: intractable pain Patient complaining of back pain. Physical Examination - Vital Signs Temperature: 99.2 F Blood Pressure: 152/67 Pulse: 86 Respirations: 18 Pulse Ox (%): 93 - Studies Laboratory Data (last 24 hrs) 03/10/21 18:35: PT 11.6, INR 1.01 03/10/21 18:35: WBC 13.30 H, Hgb 13.6, Hct 39.5, Plt Count 151 L 03/10/21 18:35: Sodium 137, Potassium 3.1 L, BUN 18, Creatinine 0.46 L, Glucose 124 H, Magnesium 1.9, Total Bilirubin 0.4, AST 17, ALT 45, Alkaline Phosphatase 108, Lipase 95 Microbiology Data (last 24 hrs): 03/10/21 20:03 Blood - Blood Anaerobic Blood Culture - Final 03/10/21 20:53 Blood - Blood Anaerobic Blood Culture - Final Assessment And Plan - Plan General: Not in acute distress. Eyes: SUNSHINE, EOMI, anicteric sclera. Conjunctiva not pale. ENT: Moist oral mucosa. Neck: Supple, no lymphadenopathy, no neck mass. Chest: Symmetrical breathing movement. Lungs: Clear to auscultation bilaterally. Adequate breath sounds bilaterally. No rhonchi, no rales no crackles. Heart: Heart sounds 1 and 2 heard and normal, normal rate, regular rhythm. Abdomen: Soft, nondistended, nontender, normal bowel sounds. Extremities: No pitting edema bilateral lower extremities, no calf tenderness bilaterally lower extremities, no digital cyanosis. Neurology: Oriented x3, no focal motor deficits. Psychiatry: Normal thought content, normal behavior, no agitation. Skin: Warm and dry. No rashes or ulcers. Assessment: Metastatic small cell lung cancer. Brain metastases. Cancer-related pain. Poor performance status Seizures Hypokalemia Plan: Supportive measures. IV fentanyl and oral oxycodone. Continue home dose antiepileptics. Replete potassium. Antiemetics as needed. Social service consult for arrangement for hospice.
--- NOTE | 2021-03-11 13:05 | RAD REPORT ---
EXAM DESCRIPTION: CTChest Abdomen Pelvis W Cont - 03/11/2021 12:52 pm CLINICAL HISTORY: CHEST PAIN COMPARISON: CT RAD RX FIELD SPINE dated 12/27/2020; Thorax W/ Con dated 10/31/2020 TECHNIQUE: CT of the chest, abdomen, and pelvis was performed. All CT scans are performed using dose optimization technique as appropriate and may include automated exposure control or mA/KV adjustment according to patient size. FINDINGS: Thorax: Chest Wall: No abnormal mass Lungs: Spiculated right upper lobe nodule measuring 2.4 cm has decreased in size, previously measurin g 4.9 cm. There is a faint ground-glass opacities in the right lung and present radiation pneumonitis . Small left lower lobe nodule measuring 8 millimeters is new but nonspecific. Pleura: No effusions or pneumothorax. Dara/Mediastinum: No lymphadenopathy. Aorta/Pulmonary Arteries: Unremarkable Heart: Normal size. Scattered coronary artery calcifications. Abdomen/Pelvis: Liver: Multiple liver lesions are identified, the largest in the right lung measures 12 millimeters. The largest on the left side measures approximately 17 millimeters. Biliary: No biliary ductal dilatation. Stomach: No significant focal abnormality. Duodenum: No significant focal abnormality. Pancreas: No significant abnormality. Spleen: No significant abnormality. Adrenal: No suspicious lesions. Kidney/ureter: No hydronephrosis. No renal calculi. Retroperitoneum: No retroperitoneal adenopathy. Vascular: No aneurysm. Bowel: No significant focal abnormality. Moderate stool in the colon. This suggests constipation. No bowel obstruction is identified. Peritoneum: No ascites or free air. Bladder: Grossly unremarkable. Reproductive: No adnexal masses. Bones: Subacute appearing L5 compression fracture. T8 compression fracture with approximately 80% los s of height. This is new. No bony retropulsion is identified. Other: n/a IMPRESSION: 1. Acute versus subacute T8 compression fracture with approximately 80% loss of height. There is also an L5 compression fracture which is favored subacute. 2. Interval development of multiple liver lesions concerning for metastatic disease. The right upper lobe lung lesion which has been previously treated has decreased in size.
[2021-03-11] MEDS: OXYCODONE HCL 5 MG TAB PO PRN (13:28)
[2021-03-11] MEDS: levETIRAcetam 500 MG TAB PO SCH ×2 (13:29→20:58)
[2021-03-11] MEDS: ONDANSETRON 4 MG/2 ML VIAL IV PRN (13:31)
[2021-03-11] MEDS ORDERED: dexAMETHasone 4 MG TAB PO SCH (16:00)
[2021-03-11] MEDS ORDERED: POTASSIUM CL SA 10 MEQ TAB PO ONE (16:50)
[2021-03-11] MEDS: ACETAMINOPHEN 500 MG TAB PO PRN (18:16)
[2021-03-11] MEDS: POLYETHYL GLY 3350 17 GM/DOSE PO SCH (21:00)
[2021-03-11] MEDS: SENOSIDES 8.6 MG TAB PO SCH (21:03)
[2021-03-12] MEDS: OXYCODONE HCL 5 MG TAB PO PRN ×4 (02:36→20:39)
[2021-03-12] MEDS: NA CHLORIDE 0.9% 1,000 ML IV SCH ×2 (02:37→14:18)
[2021-03-12] MEDS: FENTANYL CITR 100 MCG/2 ML IV PRN ×3 (04:49→23:46)
[2021-03-12 06:27] LABS: Absolute Lymphocytes (CBC) 0.3 K/uL (0.7-4.9); Basophils % 0.1 % (0-1.3); Hematocrit 32.7 % (36.0-45.0); Lymphocytes % 3.4 % (15.3-44.8); MPV 7.8 fL (7.6-11.3); RBC Red Blood Cell Count 3.16 M/uL (3.86-4.86)
[2021-03-12 06:51] LABS: BUN Blood Urea Nitrogen 14 mg/dL (7-18); Bicarbonate 26 mmol/L (21-32); Glucose Level 82 mg/dL (74-106); Sodium Level 142 mmol/L (136-145)
[2021-03-12 06:52] LABS: Potassium 3.6 mmol/L (3.5-5.1)
[2021-03-12] MEDS: ENOXAPARIN 40 MG/0.4 ML SQ SCH (08:12)
[2021-03-12] MEDS: SENOSIDES 8.6 MG TAB PO SCH ×2 (08:13→20:39)
[2021-03-12] MEDS: POLYETHYL GLY 3350 17 GM/DOSE PO SCH ×2 (08:15→20:41)
[2021-03-12] MEDS: levETIRAcetam 500 MG TAB PO SCH ×2 (08:15→20:40)
[2021-03-12] MEDS: dexAMETHasone 4 MG TAB PO SCH (08:15)
[2021-03-12] MEDS ORDERED: POTASSIUM CL SA 10 MEQ TAB PO ONE (09:00)
--- NOTE | 2021-03-12 11:04 | P.PN ---
Subjective Date of Service: 03/12/21 Chief Complaint: intractable pain Patient complaining of bilateral rib pain. Physical Examination - Vital Signs Temperature: 97.6 F Blood Pressure: 147/68 Pulse: 87 Respirations: 18 Pulse Ox (%): 91 - Studies Microbiology Data (last 24 hrs): 03/10/21 20:03 Blood - Blood Anaerobic Blood Culture - Final 03/10/21 20:53 Blood - Blood Anaerobic Blood Culture - Final Assessment And Plan - Plan General: Not in acute distress. Eyes: Anicteric sclera. Conjunctiva not pale. Neck: Supple, no lymphadenopathy, no neck mass. Chest: Symmetrical breathing movement. Lungs: Clear to auscultation bilaterally. Adequate breath sounds bilaterally. No rhonchi, no rales no crackles. Heart: Heart sounds 1 and 2 heard and normal, normal rate, regular rhythm. Abdomen: Soft, nondistended, nontender, normal bowel sounds. Extremities: No pitting edema bilateral lower extremities, no digital cyanosis. Neurology: Oriented x3, no focal motor deficits. Psychiatry: Normal thought content, normal behavior, no agitation. Skin: Warm and dry. No rashes or ulcers. Assessment: Metastatic small cell lung cancer. Brain metastases. Cancer-related pain. Poor performance status Seizures Hypokalemia Plan: Supportive measures. IV fentanyl and oral oxycodone. Continue home dose antiepileptics. Antiemetics as needed. Social service assisting with arrangement for hospice.
[2021-03-12] MEDS: ONDANSETRON 4 MG/2 ML VIAL IV PRN (18:44)
[2021-03-13] MEDS: OXYCODONE HCL 5 MG TAB PO PRN ×4 (02:07→21:24)
[2021-03-13] MEDS: NA CHLORIDE 0.9% 1,000 ML IV SCH ×2 (02:15→15:23)
[2021-03-13] MEDS: ONDANSETRON 4 MG/2 ML VIAL IV PRN ×3 (02:21→15:23)
[2021-03-13] MEDS: FENTANYL CITR 100 MCG/2 ML IV PRN ×2 (03:24→06:45)
[2021-03-13 06:00] LABS: BUN Blood Urea Nitrogen 7 mg/dL (7-18); Bicarbonate 28 mmol/L (21-32); Glucose Level 97 mg/dL (74-106); Potassium 3.4 mmol/L (3.5-5.1); Sodium Level 139 mmol/L (136-145)
[2021-03-13] MEDS: KCL 20 MEQ/100 mL IVPB 20 MEQ/100 ML BAG IV SCH ×2 (06:29→09:21)
[2021-03-13] MEDS: dexAMETHasone 4 MG TAB PO SCH (08:19)
[2021-03-13] MEDS: SENOSIDES 8.6 MG TAB PO SCH ×2 (08:21→21:24)
[2021-03-13] MEDS: ENOXAPARIN 40 MG/0.4 ML SQ SCH (08:21)
[2021-03-13] MEDS: levETIRAcetam 500 MG TAB PO SCH ×2 (08:21→21:23)
[2021-03-13] MEDS: POLYETHYL GLY 3350 17 GM/DOSE PO SCH ×2 (08:24→21:23)
[2021-03-13] MEDS: ACETAMINOPHEN 500 MG TAB PO PRN (13:30)
--- NOTE | 2021-03-13 14:44 | P.PN ---
Subjective Date of Service: 03/13/21 Chief Complaint: intractable pain Patient complaining of bilateral rib pain and back pain. Pain is related to multiple vertebral compression fractures. Physical Examination - Vital Signs Temperature: 97 F Blood Pressure: 103/55 Pulse: 91 Respirations: 20 Pulse Ox (%): 91 - Physical Exam General: Alert, In no apparent distress, Oriented x3 HEENT: Mucous membr. moist/pink Neck: JVD not distended Respiratory: Clear to auscultation bilaterally, Normal air movement Cardiovascular: No edema Gastrointestinal: Soft and benign, Non-distended, No tenderness Musculoskeletal: No swelling Integumentary: No rashes Neurological: Normal strength at 5/5 x4 extr - Studies Microbiology Data (last 24 hrs): 03/10/21 20:45 Clean Catch Urine [place] Count - Final BETWEEN 10,000 & 100,000 CFU/ML 03/10/21 20:45 Clean Catch Urine - Final MIXED [place]IDA. Assessment And Plan - Plan General: Not in acute distress. Eyes: Anicteric sclera. Conjunctiva not pale. Neck: Supple, no lymphadenopathy, no neck mass. Chest: Symmetrical breathing movement. Lungs: Clear to auscultation bilaterally. Adequate breath sounds bilaterally. No rhonchi, no rales no crackles. Heart: Heart sounds 1 and 2 heard and normal, normal rate, regular rhythm. Abdomen: Soft, nondistended, nontender, normal bowel sounds. Extremities: No pitting edema bilateral lower extremities, no digital cyanosis. Neurology: Oriented x3, no focal motor deficits. Psychiatry: Normal thought content, normal behavior, no agitation. Skin: Warm and dry. No rashes or ulcers. Assessment: Metastatic small cell lung cancer. Brain metastases. Cancer-related pain. Poor performance status Seizures Hypokalemia Plan: Continue Supportive measures. IV fentanyl and oral oxycodone for pain. Noted allergy to codeine. Continue home dose antiepileptics. Antiemetics as needed. Hospice service consulted. Patient seen by hospice at now stating she want to meet with Dr. Conroy for more information before confirming hospice. Dr. Conroy informed.
[2021-03-13] MEDS ORDERED: FENTANYL 25 MCG/PATCH TD SCH (18:00)
[2021-03-14] MEDS: FENTANYL CITR 100 MCG/2 ML IV PRN ×3 (00:22→12:43)
[2021-03-14] MEDS: OXYCODONE HCL 5 MG TAB PO PRN ×3 (03:39→15:49)
[2021-03-14] MEDS: NA CHLORIDE 0.9% 1,000 ML IV SCH (03:43)
[2021-03-14 05:43] LABS: Absolute Lymphocytes (CBC) 0.2 K/uL (0.7-4.9); Basophils % 0.3 % (0-1.3); Hematocrit 32.9 % (36.0-45.0); Lymphocytes % 2.6 % (15.3-44.8); MPV 7.8 fL (7.6-11.3); RBC Red Blood Cell Count 3.22 M/uL (3.86-4.86)
[2021-03-14 05:46] LABS: ALT/SGPT 35 U/L (12-78); Albumin 2.2 g/dL (3.4-5.0); Alkaline Phosphatase 85 U/L (45-117); BUN Blood Urea Nitrogen 5 mg/dL (7-18); Bicarbonate 30 mmol/L (21-32); Bilirubin Total 0.3 mg/dL (0.2-1.0); Glucose Level 98 mg/dL (74-106); Protein, Total 5.4 g/dL (6.4-8.2); Sodium Level 137 mmol/L (136-145)
[2021-03-14 05:50] LABS: AST/SGOT 24 U/L (15-37); Potassium 3.4 mmol/L (3.5-5.1)
[2021-03-14] MEDS: POLYETHYL GLY 3350 17 GM/DOSE PO SCH (09:00)
[2021-03-14] MEDS ORDERED: POTASSIUM CL SA 10 MEQ TAB PO ONE (09:00)
[2021-03-14] MEDS: dexAMETHasone 4 MG TAB PO SCH (09:14)
[2021-03-14] MEDS: levETIRAcetam 500 MG TAB PO SCH (09:15)
[2021-03-14] MEDS: ENOXAPARIN 40 MG/0.4 ML SQ SCH (09:15)
[2021-03-14] MEDS: SENOSIDES 8.6 MG TAB PO SCH (09:15)
[2021-03-14 09:20] VITALS: O2SAT 90
[2021-03-14] MEDS: ONDANSETRON 4 MG/2 ML VIAL IV PRN (09:27)
--- NOTE | 2021-03-14 12:36 | P.DS ---
Admission Date: 03/10/21 Discharge Date: 03/14/21 Disposition: HOSPICE-MEDICAL FACILITY Reason for Admission: intractable pain Consultations: Hospice Procedures: CT chest/abdomen/pelvis (03/11): IMPRESSION: 1. Acute versus subacute T8 compression fracture with approximately 80% loss of height. There is also an L5 compression fracture which is favored subacute. 2. Interval development of multiple liver lesions concerning for metastatic disease. The right upper lobe lung lesion which has been previously treated has decreased in size. Problem list: Metastatic small cell lung cancer. Brain metastases. Cancer-related pain. Poor performance status Seizures Hypokalemia Brief History of Present Illness: 61 yo F with stage 4 small cell lung cancer with metastases to the brain who presents with worsening chest wall pain for the past 3 days. The pain is now so bad she cannot get comfortable at home. She has been couch/bed bound for the past few weeks, and for the past few days she has been too weak to stand and has to have assistance to do so. Reports weakness, nausea, abdominal pain and constipation. Per her sister, she has been eating less as well. Patient sees Dr. Conroy. She has been too weak to go to her followup appointments. Note from 02/23, says if patient continues to decline over the next two weeks, they will refer to hospice. 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 Patient's case was discussed with oncology, the patient, and patient's family. Patient ultimately decided to pursue home hospice. She was needing pain medication for adequate pain control. She is discharged to inpatient hospice to achieve adequate control prior to home hospice. Vital Signs/Physical Exam: Temp Pulse Resp BP Pulse Ox 96.7 F L 84 18 149/64 H 90 L 03/14/21 08:00 03/14/21 08:00 03/14/21 08:00 03/14/21 08:00 03/14/21 08:00 General: Alert, In no apparent distress, Oriented x3 HEENT: Sclerae nonicteric Respiratory: Clear to auscultation bilaterally Cardiovascular: No edema, Regular rate/rhythm Gastrointestinal: Soft and benign, No tenderness Musculoskeletal: Tenderness (along chest wall) Integumentary: No significant lesion Neurological: Normal speech, Normal affect Laboratory Data at Discharge: WBC 9.00 K/uL (4.3-10.9) D 03/14/21 05:10 Hgb 11.4 g/dL (12.0-15.0) L 03/14/21 05:10 Hct 32.9 % (36.0-45.0) L 03/14/21 05:10 Plt Count 118 K/uL (152-406) L 03/14/21 05:10 PT 11.6 SECONDS (9.5-12.5) 03/10/21 18:35 INR 1.01 03/10/21 18:35 Sodium 137 mmol/L (136-145) 03/14/21 05:10 Potassium 3.4 mmol/L (3.5-5.1) L 03/14/21 05:10 BUN 5 mg/dL (7-18) L 03/14/21 05:10 Creatinine 0.26 mg/dL (0.55-1.3) L 03/14/21 05:10 Glucose 98 mg/dL (74-106) 03/14/21 05:10 Phosphorus 2.7 mg/dL (2.5-4.9) 03/11/21 05:37 Magnesium 2.0 mg/dL (1.8-2.4) 03/12/21 05:23 Total Bilirubin 0.3 mg/dL (0.2-1.0) 03/14/21 05:10 AST 24 U/L (15-37) 03/14/21 05:10 ALT 35 U/L (12-78) 03/14/21 05:10 Alkaline Phosphatase 85 U/L (45-117) 03/14/21 05:10 Lipase 95 U/L (73-393) 03/10/21 18:35 Home Medications: dexAMETHasone [Dexamethasone] 4 mg PO BID 03/10/21 levETIRAcetam [Keppra Tab] 2 tab PO BEDTIME 03/10/21 levETIRAcetam [Keppra Tab] 500 mg PO DAILY 03/10/21 Followup: MENG FAN [Primary Care Provider] - Time spent managing pt's care (in minutes): 45
[2021-03-14 17:13] VITALS: BP 142/67; TEMP 96.8
== END 2021-03-14 16:20 | disposition hospice, inpatient (51) | DRG 948 ==
LOC: ER 17:24 → ERHOLD 21:00 → 2ND 22:28
PROVIDERS: ADMIT Internal Medicine; ATTEND Hospitalist
DX: G89.3 Neoplasm related pain (acute) (chronic) (principal); C34.90 Malignant neoplasm of unspecified part of unspecified bronchus or lung; C79.31 Secondary malignant neoplasm of brain; E87.6 Hypokalemia; F17.200 Nicotine dependence, unspecified, uncomplicated; R56.9 Unspecified convulsions; Z88.5 Allergy status to narcotic agent; Z88.0 Allergy status to penicillin; Z20.822 Contact with and (suspected) exposure to COVID-19
CPT/HCPCS: 36415; 70450; 71045; 71260; 74177; 80048; 80053; 80076; 81003; 83605; 83690; 83735; 83880; 84100; 84132; 84145; 84484; 85025; 85610; 87040; 87086; 87088; 93970; 94760; 99285; J1650; J2405; J3010; J3475; J3480; J7030; J8540; Q9967; U0003

== ENCOUNTER 2021-03-14 16:25 | Inpatient (IN) | payer OTHER ==
[2021-03-14] MEDS ORDERED: ACETAMINOPHEN 500 MG TAB PO PRN (17:07)
[2021-03-14] MEDS ORDERED: FENTANYL CITR 100 MCG/2 ML IV PRN (17:15)
[2021-03-14 18:22] VITALS: O2SAT 90
[2021-03-14 19:42] VITALS: BMI 24.0
[2021-03-14] MEDS ORDERED: levETIRAcetam 500 MG TAB PO SCH (21:00)
[2021-03-14] MEDS: POLYETHYL GLY 3350 17 GM/DOSE PO SCH (21:00)
[2021-03-14] MEDS: OXYCODONE HCL 5 MG TAB PO PRN (21:37)
[2021-03-14] MEDS: ONDANSETRON 4 MG/2 ML VIAL IV PRN (21:38)
[2021-03-14] MEDS: SENOSIDES 8.6 MG TAB PO SCH (21:38)
[2021-03-15] MEDS: OXYCODONE HCL 5 MG TAB PO PRN ×2 (04:50→11:02)
[2021-03-15] MEDS ORDERED: INFLUENZA VACCINE (for 6+ mo) 0.5 ML DOSE IMVAC ONE (08:00)
[2021-03-15] MEDS ORDERED: ENOXAPARIN 40 MG/0.4 ML SQ SCH (09:00)
[2021-03-15] MEDS ORDERED: levETIRAcetam 500 MG TAB PO SCH (09:00)
[2021-03-15] MEDS ORDERED: dexAMETHasone 4 MG TAB PO SCH (09:00)
[2021-03-15] MEDS ORDERED: FENTANYL 25 MCG/PATCH TD SCH (09:00)
[2021-03-15 09:10] VITALS: BP 140/60; TEMP 96.7
[2021-03-15] MEDS: SENOSIDES 8.6 MG TAB PO SCH (09:48)
[2021-03-15] MEDS: POLYETHYL GLY 3350 17 GM/DOSE PO SCH (09:49)
[2021-03-15] MEDS: ONDANSETRON 4 MG/2 ML VIAL IV PRN (11:02)
[2021-03-16] MEDS ORDERED: FENTANYL 25 MCG/PATCH TD SCH (18:00)
== END 2021-03-15 12:21 | disposition hospice, home (50) | DRG 951 ==
LOC: 2ND 16:25
PROVIDERS: ADMIT Internal Medicine Hematology & Oncology; ATTEND Internal Medicine Hematology & Oncology
DX: Z51.5 Encounter for palliative care (principal)
CPT/HCPCS: 82947; J1650; J2405; J8540